=== PATIENT | female | born 1950 | race Caucasian/White ===

== ENCOUNTER 2018-01-09 00:21 | Inpatient (IN) | payer MEDICARE ==
[~2018-01-09] VITALS: Ht 175.3 cm; Wt 80.2 kg
[2018-01-09] VITALS (19 sets, daily range): BP systolic 127–205; BP diastolic 57–84; PULSE 83–102; RESP 15–23; TEMP 98.4–98.6; O2SAT 92–96
[2018-01-09] MEDS ORDERED: MORPHINE SULFATE 4 MG/ML INJ ONE (00:50)
--- NOTE | 2018-01-09 01:06 | PD ---
HPI Chief Complaint: Altered Mental Status Time Seen by Provider: 00:33 Travel History International Travel<30 days: No Contact w/Intl Traveler<30days: No Traveled to known affect area: No History of Present Illness HPI The patient is a 68-year-old female who presents to the emergency department via private vehicle for altered mental status. The patient flew down from [place] with her daughter earlier tonight into [facility]. The patient was noted to have an alteration in her mental status while on the plane by the daughter. The daughter states the patient was digging through her purse, would not talk to the daughter, and appear to have an altered mental status, which is not the patient's normal baseline. The patient does have a history of previous intracranial hemorrhage, spontaneous per the daughter's report, but still takes a baby aspirin daily. The patient did complain of a headache earlier today and also noted some nausea and vomiting by the daughter prior to arrival. The patient denies any neck pain, chest pain, shortness of breath, abdominal pain, or focal deficits upon arrival. Symptoms are moderate. The patient does have a history of partial seizure in the past and was previously on Keppra and Dilantin, however, only takes Lamictal currently. PFSH Past Medical History COPD: Yes Cerebrovascular Accident: Yes (frontal lobe bleed) Diabetes: Yes Patient Takes Glucophage: No Glaucoma: Yes Hypertension: Yes Seizures: Yes ?: Not : 3 Para: 3 Past Surgical History Narrative Surgical Glaucoma surgery, lumpectomy Social History Alcohol Use: No Tobacco Use: No Substance Use: No Allergies-Medications (Allergen,Severity, Reaction): Coded Allergies: brimonidine (Verified Allergy, Unknown, 01/09/18) Reported Meds & Prescriptions Reported Meds & Active Scripts Active Reported Omeprazole 20 Mg Tab 20 Mg PO DAILY Azopt Opth Drops (Brinzolamide) 1% Susp 1 Drop EACH EYE TID Isopto Carpine Opth Drops (Pilocarpine HCl) 1 % Soln 1 Drop EACH EYE Q6HR Magnesium Oxide 250 Mg Tab 250 Mg PO DAILY Lamictal (Lamotrigine) 200 Mg Tab 200 Mg PO BID Glipizide 5 Mg Tab 5 Mg PO DAILY Take 30 minutes before a meal Review of Systems Except as stated in HPI: all other systems reviewed are Neg General / Constitutional: No: Fever HENT: Positive: Headaches, Lightheadedness Cardiovascular: No: Chest Pain or Discomfort Respiratory: No: Shortness of Breath Gastrointestinal: Positive: Nausea, Vomiting, No: Abdominal Pain Musculoskeletal: No: Weakness Neurologic: Positive: Dizziness, Change in Mentation, No: Focal Abnormalities, Paresthesia, Sensory Disturbance Psychiatric: No: Substance Abuse Physical Exam Narrative GENERAL: Awake, alert, nontoxic-appearing 5-year-old female who appears her stated age and is in no acute respiratory distress. SKIN: Focused skin assessment warm/dry. HEAD: Atraumatic. Normocephalic. EYES: Pupils are 2 mm bilateral. EOMs are intact. ENT: No nasal bleeding or discharge. Upper dentures noted. NECK: Trachea midline. No JVD. CARDIOVASCULAR: Regular rate and rhythm. No murmur appreciated. RESPIRATORY: No accessory muscle use. Clear to auscultation. Breath sounds equal bilaterally. GASTROINTESTINAL: Abdomen soft, non-tender, nondistended. No rebound tenderness. MUSCULOSKELETAL: No obvious deformities. No clubbing. No cyanosis. No edema. Back: No tenderness of the CVA. Tattoo noted over the right scapula. NEUROLOGICAL: Awake and alert. No obvious cranial nerve deficits. Motor grossly within normal limits. Normal speech. No drift of the upper or lower extremities. Sensation is symmetric on the face, arms, and legs. Patient is oriented to person, daughter, month, president [facility], however, did not know the current year or location. PSYCHIATRIC: Slightly altered mental status. Data Data Last Documented VS Vital Signs Date Time Temp Pulse Resp B/P (MAP) Pulse Ox O2 Delivery O2 Flow Rate FiO2 01/09/18 02:13 92 16 174/79 (110) 94 Room Air 01/09/18 00:34 98.6 Orders Orders Morphine Inj (Morphine Inj) (01/09/18 00:50) Electrocardiogram (01/09/18 01:01) Ammonia (01/09/18 01:01) Complete Blood Count With Diff (01/09/18 01:01) Comprehensive Metabolic Panel (01/09/18 01:01) Creatine Kinase (Cpk) (01/09/18 01:01) Prothrombin Time / Inr (Pt) (01/09/18 01:01) Act Partial Throm Time (Ptt) (01/09/18 01:01) Troponin I (01/09/18 01:01) Thyroid Stimulating Hormone (01/09/18 01:01) Urinalysis - C+S If Indicated (01/09/18 01:01) Chest, Single Ap (01/09/18 01:01) Ct Brain W/O Iv Contrast(Rout) (01/09/18 01:01) Blood Glucose (01/09/18 01:01) Ecg Monitoring (01/09/18 01:01) Iv Access Insert/Monitor (01/09/18 01:01) Oximetry (01/09/18 01:01) Sodium Chloride 0.9% Flush (Ns Flush) (01/09/18 01:15) Drug Screen, Random Urine (01/09/18 01:01) Alcohol (Ethanol) (01/09/18 01:01) Lactic Acid (01/09/18 01:01) Nicardipine Inj (Cardene Inj) (01/09/18 02:00) Labs Laboratory Tests Test 01/09/18 01:05 01/09/18 01:29 White Blood Count 13.1 TH/MM3 Red Blood Count 4.30 MIL/MM3 Hemoglobin 12.7 GM/DL Hematocrit 38.2 % Mean Corpuscular Volume 88.9 FL Mean Corpuscular Hemoglobin 29.6 PG Mean Corpuscular Hemoglobin Concent 33.4 % Red Cell Distribution Width 14.6 % Platelet Count 399 TH/MM3 Mean Platelet Volume 9.3 FL Neutrophils (%) (Auto) 84.8 % Lymphocytes (%) (Auto) 11.3 % Monocytes (%) (Auto) 2.3 % Eosinophils (%) (Auto) 0.8 % Basophils (%) (Auto) 0.8 % Neutrophils # (Auto) 11.1 TH/MM3 Lymphocytes # (Auto) 1.5 TH/MM3 Monocytes # (Auto) 0.3 TH/MM3 Eosinophils # (Auto) 0.1 TH/MM3 Basophils # (Auto) 0.1 TH/MM3 CBC Comment DIFF FINAL Differential Comment Prothrombin Time 9.7 SEC Prothromb Time International Ratio 1.0 RATIO Activated Partial Thromboplast Time 29.6 SEC Blood Urea Nitrogen 26 MG/DL Creatinine 1.15 MG/DL Random Glucose 119 MG/DL Total Protein 8.2 GM/DL Albumin 4.4 GM/DL Calcium Level 9.5 MG/DL Alkaline Phosphatase 76 U/L Aspartate Amino Transf (AST/SGOT) 22 U/L Alanine Aminotransferase (ALT/SGPT) 26 U/L Total Bilirubin 0.4 MG/DL Sodium Level 139 MEQ/L Potassium Level 4.7 MEQ/L Chloride Level 103 MEQ/L Carbon Dioxide Level 26.9 MEQ/L Anion Gap 9 MEQ/L Estimat Glomerular Filtration Rate 47 ML/MIN Total Creatine Kinase 132 U/L Troponin I LESS THAN 0.02 NG/ML Thyroid Stimulating Hormone 3rd Gen 3.010 uIU/ML Ethyl Alcohol Level LESS THAN 3 MG/DL Lactic Acid Level 0.7 mmol/L Ammonia 11 MCMOL/L [facility] Medical Decision Making Medical Screen Exam Complete: Yes Emergency Medical Condition: Yes Medical Record Reviewed: Yes Interpretation(s) EKG reveals normal sinus rhythm with a rate of 89. No ischemic changes or ectopy noted. Last Impressions Head CT 01/09/18100 Signed Impressions: Service Date/Time: December 01:16 - CONCLUSION: 1. Left frontal intraparenchymal hemorrhage measuring 3.1 x 2.1 cm with minimal subarachnoid hemorrhage. 2. 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 Kuldip Oh MD Chest X-Ray 01/09/18100 Signed Impressions: Service Date/Time: December 01:09 - CONCLUSION: No acute disease. Kuldip Oh MD Laboratory Tests Test 01/09/18 01:05 01/09/18 01:29 White Blood Count 13.1 TH/MM3 Red Blood Count 4.30 MIL/MM3 Hemoglobin 12.7 GM/DL Hematocrit 38.2 % Mean Corpuscular Volume 88.9 FL Mean Corpuscular Hemoglobin 29.6 PG Mean Corpuscular Hemoglobin Concent 33.4 % Red Cell Distribution Width 14.6 % Platelet Count 399 TH/MM3 Mean Platelet Volume 9.3 FL Neutrophils (%) (Auto) 84.8 % Lymphocytes (%) (Auto) 11.3 % Monocytes (%) (Auto) 2.3 % Eosinophils (%) (Auto) 0.8 % Basophils (%) (Auto) 0.8 % Neutrophils # (Auto) 11.1 TH/MM3 Lymphocytes # (Auto) 1.5 TH/MM3 Monocytes # (Auto) 0.3 TH/MM3 Eosinophils # (Auto) 0.1 TH/MM3 Basophils # (Auto) 0.1 TH/MM3 CBC Comment DIFF FINAL Differential Comment Prothrombin Time 9.7 SEC Prothromb Time International Ratio 1.0 RATIO Activated Partial Thromboplast Time 29.6 SEC Blood Urea Nitrogen 26 MG/DL Creatinine 1.15 MG/DL Random Glucose 119 MG/DL Total Protein 8.2 GM/DL Albumin 4.4 GM/DL Calcium Level 9.5 MG/DL Alkaline Phosphatase 76 U/L Aspartate Amino Transf (AST/SGOT) 22 U/L Alanine Aminotransferase (ALT/SGPT) 26 U/L Total Bilirubin 0.4 MG/DL Sodium Level 139 MEQ/L Potassium Level 4.7 MEQ/L Chloride Level 103 MEQ/L Carbon Dioxide Level 26.9 MEQ/L Anion Gap 9 MEQ/L Estimat Glomerular Filtration Rate 47 ML/MIN Total Creatine Kinase 132 U/L Troponin I LESS THAN 0.02 NG/ML Thyroid Stimulating Hormone 3rd Gen 3.010 uIU/ML Ethyl Alcohol Level LESS THAN 3 MG/DL Lactic Acid Level 0.7 mmol/L Ammonia 11 MCMOL/L Differential Diagnosis Differential diagnosis includes delirium, UTI, intracranial hemorrhage, subdural hemorrhage, hyponatremia, CVA, seizure, dehydration, electrolyte abnormality, pneumonia. Narrative Course IV was established, labs are drawn and sent, and the patient was placed on cardiac telemetry monitoring and continuous pulse oximetry monitoring. EKG was ordered and interpreted. CT of the brain was obtained. UA was sent to lab. CT the brain is positive for 3.1 x 3.2 cm intraparenchymal hemorrhage. The patient was noted to be hypertensive with a systolic of 205 and diastolic in 95 , therefore, the patient had a bed was placed up at 30 and the patient was placed on a Cardene drip. A call was placed to the on-call elevator examiner and adjuster, Dr. Gallegos as well as the on-call neurosurgeon, Dr. Garcia. I discussed the patient with Dr. Blanton at 2 AM, no indication for TXA as it may increase her risk of CVA. The patient's platelets and coags are unremarkable. The patient will be admitted to the intensive surgical care unit. Critical Care Narrative Aggregate critical care time was 45 minutes. Time to perform other separately billable procedures was not included in the critical care time. My time did not include minutes spent treating any other patients simultaneously or on activities that did not directly contribute to the patient's treatment. The services I provided to this patient were to treat and/or prevent clinically significant deterioration that could result in: Herniation, increased intracranial hemorrhage, . I provided critical care services requiring my management, as noted below: Chart data review, documentation time, medication orders and management, vital sign assessments/reviewing monitor data, ordering and reviewing lab tests, ordering and interpreting/reviewing x-rays and diagnostic studies, care of the patient and discussion of the patient with the admitting physicians. Physician Communication Physician Communication The on-call elevator examiner and adjuster and on-call neurosurgeon were paged for admission. Diagnosis Primary Impression: Intraparenchymal hemorrhage of brain Admitting Information Admitting Physician Requests: Admit Condition: Serious Alberto Ochoa MD Jan 09, 2018 01:06
[2018-01-09] MEDS ORDERED: SODIUM CHLORIDE 0.9% FLUSH 10 ML FLUSH IV FLUSH PRN (01:15)
[2018-01-09] MEDS ORDERED: LAMI200T PO (01:17)
[2018-01-09] MEDS ORDERED: AZOP1SUS EACH EYE (01:17)
[2018-01-09] MEDS ORDERED: ASPI81CH6 CHEW (01:17)
[2018-01-09] MEDS ORDERED: GLIP5TAB8 PO (01:17)
[2018-01-09] MEDS ORDERED: ISOP1SOL EACH EYE (01:17)
[2018-01-09] MEDS ORDERED: MAGN250T11 PO (01:17)
--- NOTE | 2018-01-09 01:34 | RADRPT ---
EXAM DATE/TIME: 01/09/2018 01:09 [facility] COMPARISON: No previous studies available for comparison. INDICATIONS : Chest discomfort, vomiting starting today MEDICAL HISTORY : None. SURGICAL HISTORY : None. ENCOUNTER: Initial ACUITY: 1 day PAIN SCORE: 0/10 LOCATION: Bilateral chest FINDINGS: A single view of the chest demonstrates the lungs to be symmetrically aerated without evidence of mas s, infiltrate or effusion. The cardiomediastinal contours are unremarkable. Osseous structures are intact. CONCLUSION: No acute disease. Kuldip Oh MD on January 09, 2018 at 1:33 Board Certified Radiologist. This report was verified electronically.
--- NOTE | 2018-01-09 01:39 | RADRPT ---
EXAM DATE/TIME: 01/09/2018 01:16 [facility] COMPARISON: No previous studies available for comparison. INDICATIONS : Altered mental status. RADIATION DOSE: 56.35 CTDIvol (mGy) MEDICAL HISTORY : Seizures. SURGICAL HISTORY : Non-responsive. ENCOUNTER: Initial ACUITY: 1 day PAIN SCALE: Non-responsive LOCATION: cranial TECHNIQUE: Multiple contiguous axial images were obtained of the head. Using automated exposure control and adj ustment of the mA and/or kV according to patient size, radiation dose was kept as low as reasonably a chievable to obtain optimal diagnostic quality images. DICOM format image data is available electro nically for review and comparison. FINDINGS: CEREBRUM: Left frontal hemorrhage measures 3.1 x 2.1 cm. Minimal subarachnoid hemorrhage. Encephalomalacia in t he right frontal lobe. There appears to be minimal hemorrhage in the left lateral ventricle No eviden ce of midline shift, mass lesion, or acute infarction. No extra-axial fluid collections are seen. POSTERIOR FOSSA: The cerebellum and brainstem are intact. The 4th ventricle is midline. The cerebellopontine angle i s unremarkable. EXTRACRANIAL: The visualized portion of the orbits is intact. SKULL: The calvaria is intact. No evidence of skull fracture. CONCLUSION: 1. Left frontal intraparenchymal hemorrhage measuring 3.1 x 2.1 cm with minimal subarachnoid hemorrha ge. 2. 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 Kuldip Oh MD on January 09, 2018 at 1:35 Board Certified Radiologist. This report was verified electronically.
[2018-01-09 01:48] LABS: AUTOMATED NEUTROPHIL # 11.1 TH/MM3 (1.8-7.7); BASOPHIL # 0.1 TH/MM3 (0-0.2); BASOPHIL % 0.8 % (0.0-2.0); EOSINOPHIL # 0.1 TH/MM3 (0-0.4); EOSINOPHIL % 0.8 % (0.0-4.0); HEMATOCRIT 38.2 % (35.0-46.0); HEMOGLOBIN 12.7 GM/DL (11.6-15.3); LYMPH % 11.3 % (9.0-44.0); LYMPHOCYTE # 1.5 TH/MM3 (1.0-4.8); MEAN CELL VOLUME 88.9 FL (80.0-100.0); MEAN CORPUSCULAR HEMOGLOBIN 29.6 PG (27.0-34.0); MEAN CORPUSCULAR HGB CONC 33.4 % (32.0-36.0); MEAN PLATELET VOLUME 9.3 FL (7.0-11.0); MONO % 2.3 % (0.0-8.0); MONOCYTE # 0.3 TH/MM3 (0-0.9); NEUT % 84.8 % (16.0-70.0); PLATELET COUNT 399 TH/MM3 (150-450); RED CELL DISTRIBUTION WIDTH 14.6 % (11.6-17.2); WHITE BLOOD COUNT 13.1 TH/MM3 (4.0-11.0)
[2018-01-09 02:00] LABS: PROTHROMBIN TIME - PATIENT 9.7 SEC (9.8-11.6)
[2018-01-09] MEDS: niCARdipine INJ 25 MG in SODIUM CHLOR 0.9% 250 ML INJ 240 ML IV PRN ×6 (02:02→20:13)
[2018-01-09 02:06] LABS: ALBUMIN 4.4 GM/DL (3.4-5.0); ALT (GPT) 26 U/L (10-53); AST (GOT) 22 U/L (15-37); BICARBONATE 26.9 MEQ/L (21.0-32.0); BLOOD UREA NITROGEN 26 MG/DL (7-18); CALCIUM 9.5 MG/DL (8.5-10.1); CHLORIDE 103 MEQ/L (98-107); CREATININE 1.15 MG/DL (0.50-1.00); GLOMERULAR FILTRATION RATE 47 ML/MIN (>89); GLUCOSE,RANDOM 119 MG/DL (74-106); SODIUM (NA) 139 MEQ/L (136-145)
[2018-01-09 02:16] LABS: ALKALINE PHOSPHATASE 76 U/L (45-117); TOTAL BILIRUBIN ADULT 0.4 MG/DL (0.2-1.0); TOTAL PROTEIN 8.2 GM/DL (6.4-8.2); TROPONIN I LESS THAN 0.02 NG/ML (0.02-0.05)
[2018-01-09] MEDS ORDERED: OMEP20TA93 PO (02:18)
[2018-01-09] MEDS: SODIUM CHLOR 0.9% 1000 ML INJ 1,000 ML IV SCH ×2 (02:29→14:24)
[2018-01-09] MEDS ORDERED: SENNOSIDES 8.6 MG TAB PO PRN (02:30)
[2018-01-09] MEDS ORDERED: MORPHINE SULFATE 2 MG/ML SYRINGE IV PUSH PRN (02:30)
[2018-01-09] MEDS ORDERED: MAGNESIUM HYDROXIDE SUSP 30 ML CUP PO PRN (02:30)
[2018-01-09] MEDS ORDERED: BISACODYL 10 MG SUPP RECTAL PRN (02:30)
[2018-01-09] MEDS ORDERED: CHLORHEXIDINE GLUCONATE 2 % 1 PACK (2 CLOTHS) TOP PRN (02:30)
[2018-01-09] MEDS ORDERED: ONDANSETRON HCL 4 MG/2 ML VIAL IV PUSH PRN (02:30)
[2018-01-09] MEDS ORDERED: ACETAMINOPHEN 325 MG TAB PO PRN (02:30)
[2018-01-09] MEDS ORDERED: NURSING INFORMATION XX SCH (02:30)
[2018-01-09] MEDS ORDERED: LACTULOSE SYRUP 20 GM/30 ML CUP PO PRN (02:30)
[2018-01-09] MEDS ORDERED: RESP: ALBUTEROL 2.5 MG/IPRATROPIUM 0.5 MG NEB (PRN) INH (02:30)
--- NOTE | 2018-01-09 02:33 | HHI.HP ---
HPI Service Critical Care Medicine Primary Care Physician Non-Staff Admission Diagnosis Intraparenchymal hemorrhage Diagnosis: Travel History International Travel<30 Days: No Contact w/Intl Traveler <30 Da: No Traveled to Known Affected Are: No History of Present Illness 68-year-old female who presents for an evaluation of altered mental status. The patient flew down from [place] with her daughter earlier tonight into [facility]. The patient was noted to have an alteration in her mental status while on the plane by the daughter. The daughter states the patient was digging through her purse, would not talk to the daughter, and appear to be altered, which is not the patient's normal baseline. The patient does have a history of previous frontal lobe intracranial hemorrhage, spontaneous per the daughter's report, but still takes a baby aspirin daily. The patient did complain of a headache earlier today and also noted some nausea and vomiting by the daughter prior to arrival. She however denies any neck pain, chest pain, shortness of breath, abdominal pain, or focal deficits upon arrival. The patient does have a history of partial seizure in the past and was previously on Keppra and Dilantin, however, only takes Lamictal currently. The CT of the head obtained in the emergency department shows left frontal intraparenchymal hemorrhage measuring 3.12.1 cm with a minimal subarachnoid bleed. The case was discussed by ED attending with the neurosurgeon on-call who recommends admission to neuro ICU and conservative management with tight blood pressure control. Review of Systems Constitutional: DENIES: Diaphoretic episodes, Fatigue, Fever, Weight gain, Weight loss, Chills, Dizziness, Change in appetite, Night Sweats Endocrine: DENIES: Abnorml menstrual pattern, Heat/cold intolerance, Polydipsia , Polyuria, Polyphagia Eyes: DENIES: Diplopia, Eye inflammation, Eye pain, Vision loss, Photosensitivity, Double Vision Ears, nose, mouth, throat: DENIES: Tinnitus, Hearing loss, Vertigo, Nasal discharge, Oral lesions, Throat pain, Hoarseness, Ear Pain, Running Nose, Epistaxis, Sinus Pain, Toothache, Odynophagia Respiratory: DENIES: Apneas, Cough, Snoring, Wheezing, Hemoptysis, Sputum production, Shortness of breath Cardiovascular: DENIES: Chest pain, Palpitations, Syncope, Dyspnea on Exertion , PND, Lower Extremity Edema, Orthopnea, Claudication Gastrointestinal: COMPLAINS OF: Nausea, Vomiting, DENIES: Abdominal pain, Black stools, Bloody stools, Constipation, Diarrhea, Difficulty Swallowing, Anorexia Genitourinary: DENIES: Abnormal vaginal bleeding, Dysmenorrhea, Dyspareunia, Sexual dysfunction, Urinary frequency, Urinary incontinence, Urgency, Hematuria , Dysuria, Nocturia, Vaginal discharge Musculoskeletal: DENIES: Joint pain, Muscle aches, Stiffness, Joint Swelling, Back pain, Neck pain Integumentary: DENIES: Abnormal pigmentation, Pruritus, Rash, Nail changes, Breast masses, Breast skin changes, Nipple discharge Hematologic/lymphatic: DENIES: Bruising, Lymphadenopathy Immunologic/allergic: DENIES: Eczema, Urticaria Neurologic: COMPLAINS OF: Headache, Speech Problems, Poor Balance, DENIES: Abnormal gait, Localized weakness, Paresthesias, Seizures, Tremor Psychiatric: DENIES: Anxiety, Confusion, Mood changes, Depression, Hallucinations, Agitation, Suicidal Ideation, Homicidal Ideation, Delusions Past Family Social History Allergies: Coded Allergies: brimonidine (Verified Allergy, Unknown, 01/09/18) Past Medical History COPD: Yes Cerebrovascular Accident: Yes (frontal lobe bleed) Diabetes: Yes Glaucoma: Yes Hypertension: Yes Seizures: Yes Past Surgical History Glaucoma surgery, lumpectomy Reported Medications Reported Meds & Active Scripts Active Reported Omeprazole 20 Mg Tab 20 Mg PO DAILY Azopt Opth Drops (Brinzolamide) 1% Susp 1 Drop EACH EYE TID Isopto Carpine Opth Drops (Pilocarpine HCl) 1 % Soln 1 Drop EACH EYE Q6HR Magnesium Oxide 250 Mg Tab 250 Mg PO DAILY Lamictal (Lamotrigine) 200 Mg Tab 200 Mg PO BID Glipizide 5 Mg Tab 5 Mg PO DAILY Take 30 minutes before a meal Active Ordered Medications Current Medications Medications (Trade) Dose Ordered Sig/Jannie Route PRN Reason Start Time Stop Time Status Last Admin Dose Admin Nicardipine HCl 25 mg/Sodium Chloride 250 ml @ 50 mls/hr TITRATE PRN IV Blood pressure management 01/09/18 02:00 01/09/18 02:02 Lamotrigine (LaMICtal) 200 mg BID PO 01/09/18 09:00 Pilocarpine HCl (Isopto Carpine 1% Opth Soln) 1 drop Q6HR EACH EYE 01/09/18 06:00 Patient Own Medication PT OWN MED: AZOPT EYE DRPaola.. TID EACH EYE 01/09/18 09:00 Magnesium Oxide (Mag-Ox) 400 mg DAILY PO 01/09/18 09:00 Sodium Chloride 1,000 ml @ 84 mls/hr [id number] IV 01/09/18 02:29 Sodium Chloride (NS Flush) 2 ml UNSCH PRN IV FLUSH FLUSH AFTER USING IV ACCESS 01/09/18 02:30 Sodium Chloride (NS Flush) 2 ml BID IV FLUSH 01/09/18 09:00 Acetaminophen (Tylenol) 650 mg Q6H PRN PO PAIN 1-5 AND/OR FEVER >101F 01/09/18 02:30 Morphine Sulfate (Morphine Inj) 2 mg Q2H PRN IV PUSH PAIN SCALE 6 TO 10 01/09/18 02:30 Famotidine (Pepcid Inj) 20 mg Q12HR IV PUSH 01/09/18 09:00 Ondansetron HCl (Zofran Inj) 4 mg Q6H PRN IV PUSH NAUSEA OR VOMITING 01/09/18 02:30 Albuterol/ Ipratropium (Duoneb Neb) 1 ampule Q2HR NEB PRN INH WHEEZING 01/09/18 02:30 Miscellaneous Information 1 Q361D XX 01/09/18 02:30 Chlorhexidine Gluconate (Chlorhexidine 2% Cloth) 3 pack Taper DAILY@04 TOP 01/09/18 04:00 01/05/19 03:59 Chlorhexidine Gluconate (Chlorhexidine 2% Cloth) 3 pack UNSCH PRN TOP HYGIENIC CARE 01/09/18 02:30 Senna/Docusate Sodium (Tanya-Colace) 1 tab BID PO 01/09/18 09:00 Magnesium Hydroxide (Milk Of Magnesia Liq) 30 ml Q12H PRN PO Mild constipation 01/09/18 02:30 Sennosides (Senokot) 17.2 mg Q12H PRN PO Moderate constipation 01/09/18 02:30 Bisacodyl (Dulcolax Supp) 10 mg DAILY PRN RECTAL SEVERE CONSITIPATION/ IF NPO 01/09/18 02:30 Lactulose (Lactulose Liq) 30 ml DAILY PRN PO SEVERE CONSITIPATION/ IF PO 01/09/18 02:30 Family History No family history significant of early coronary artery disease or malignancy Social History Alcohol Use: No Tobacco Use: No Substance Use: No Physical Exam Vital Signs Vital Signs Date Time Temp Pulse Resp B/P (MAP) Pulse Ox O2 Delivery O2 Flow Rate FiO2 01/09/18 02:31 96 16 161/73 (102) 96 Room Air 01/09/18 02:13 92 16 174/79 (110) 94 Room Air 01/09/18 02:02 87 182/77 01/09/18 01:13 93 Room Air 01/09/18 00:42 88 16 205/84 (124) 96 Room Air 01/09/18 00:34 98.6 88 16 205/84 (124) 92 Physical Exam GENERAL: Well-nourished, well-developed patient. SKIN: Warm and dry. HEAD: Normocephalic. EYES: No scleral icterus. No injection or drainage. NECK: Supple, trachea midline. No JVD or lymphadenopathy. CARDIOVASCULAR: Regular rate and rhythm without murmurs, gallops, or rubs. RESPIRATORY: Breath sounds equal bilaterally. No accessory muscle use. GASTROINTESTINAL: Abdomen soft, non-tender, nondistended. MUSCULOSKELETAL: No cyanosis, or edema. BACK: Nontender without obvious deformity. NEURO EXAM: GCS: 15 Mental Status: The patient is alert and oriented to person, place, and time with normal speech. Cranial Nerves: Visual acuity intact bilaterally. Visual enamorado normal in all quadrants. Pupils are round, reactive to light. Extraocular movements are intact without ptosis. Hearing is normal bilaterally. Voice is normal. Tongue protrudes midline and moves symmetrically. Laboratory Laboratory Tests Test 01/09/18 01:05 01/09/18 01:29 White Blood Count 13.1 Red Blood Count 4.30 Hemoglobin 12.7 Hematocrit 38.2 Mean Corpuscular Volume 88.9 Mean Corpuscular Hemoglobin 29.6 Mean Corpuscular Hemoglobin Concent 33.4 Red Cell Distribution Width 14.6 Platelet Count 399 Mean Platelet Volume 9.3 Neutrophils (%) (Auto) 84.8 Lymphocytes (%) (Auto) 11.3 Monocytes (%) (Auto) 2.3 Eosinophils (%) (Auto) 0.8 Basophils (%) (Auto) 0.8 Neutrophils # (Auto) 11.1 Lymphocytes # (Auto) 1.5 Monocytes # (Auto) 0.3 Eosinophils # (Auto) 0.1 Basophils # (Auto) 0.1 CBC Comment DIFF FINAL Differential Comment Prothrombin Time 9.7 Prothromb Time International Ratio 1.0 Activated Partial Thromboplast Time 29.6 Blood Urea Nitrogen 26 Creatinine 1.15 Random Glucose 119 Total Protein 8.2 Albumin 4.4 Calcium Level 9.5 Alkaline Phosphatase 76 Aspartate Amino Transf (AST/SGOT) 22 Alanine Aminotransferase (ALT/SGPT) 26 Total Bilirubin 0.4 Sodium Level 139 Potassium Level 4.7 Chloride Level 103 Carbon Dioxide Level 26.9 Anion Gap 9 Estimat Glomerular Filtration Rate 47 Total Creatine Kinase 132 Troponin I LESS THAN 0.02 Thyroid Stimulating Hormone 3rd Gen 3.010 Ethyl Alcohol Level LESS THAN 3 Lactic Acid Level 0.7 Ammonia 11 Result Diagram: 01/09/1810401/09/18104 Imaging Last [address] 01/09/18100 Signed Impressions: Service Date/Time: December 01:16 - CONCLUSION: 1. Left frontal intraparenchymal hemorrhage measuring 3.1 x 2.1 cm with minimal subarachnoid hemorrhage. 2. 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 Kuldip Oh MD Chest X-Ray 01/09/18100 Signed Impressions: Service Date/Time: December 01:09 - CONCLUSION: No acute disease. MD Ann-Marie Ruano VTE Risk Assessment Ann-Marie VTE Risk Assessment: Mod/High Risk (score >= 2) VTE Pharm Contraindication: Hemorrhage Caprini Risk Assessment Model Point Value = 1 Point Value = 2 Point Value = 3 Point Value = 5 Age 41-60 Minor surgery BMI > 25 kg/m2 Swollen legs Varicose veins or History of unexplained or recurrent spontaneous Oral contraceptives or hormone replacement Sepsis (< 1 month) Serious lung disease, including pneumonia (< 1 month) Abnormal pulmonary function Acute myocardial infarction Congestive heart failure (< 1 month) History of inflammatory bowel disease Medical patient at bed rest Age 61-74 Arthroscopic surgery Major open surgery (> 45 min) Laparoscopic surgery (> 45 min) Malignancy Confined to bed (> 72 hours) Immobilizing plaster cast Central venous access Age >= 75 History of VTE Family history of VTE Factor V Leiden Prothrombin [id number] Lupus anticoagulant Anticardiolipin antibodies Elevated serum homocysteine Heparin-induced thrombocytopenia Other congenital or acquired thrombophilia Stroke (< 1 month) Elective arthroplasty Hip, pelvis, or leg fracture Acute spinal cord injury (< 1 month) Prophylaxis Regimen Total Risk Factor Score Risk Level Prophylaxis Regimen 0-1 Low Early ambulation 2 Moderate Order ONE of the following: *Sequential Compression Device (SCD) *Heparin 5000 units SQ BID 3-4 Higher Order ONE of the following medications: *Heparin 5000 units SQ TID *Enoxaparin/Lovenox 40 mg SQ daily (WT < 150 kg, CrCl > 30 mL/min) *Enoxaparin/Lovenox 30 mg SQ daily (WT < 150 kg, CrCl > 10-29 mL/min) *Enoxaparin/Lovenox 30 mg SQ BID (WT < 150 kg, CrCl > 30 mL/min) AND/OR *Sequential Compression Device (SCD) 5 or more Highest Order ONE of the following medications: *Heparin 5000 units SQ TID (Preferred with Epidurals) *Enoxaparin/Lovenox 40 mg SQ daily (WT < 150 kg, CrCl > 30 mL/min) *Enoxaparin/Lovenox 30 mg SQ daily (WT < 150 kg, CrCl > 10-29 mL/min) *Enoxaparin/Lovenox 30 mg SQ BID (WT < 150 kg, CrCl > 30 mL/min) AND *Sequential Compression Device (SCD) Assessment and Plan Assessment and Plan Intracranial bleed -No surgical intervention indicated -Coags within normal limits -Blood pressure control -SBP goal less than 140 -Repeat CT head in 24 hours -Neuro checks per unit protocol Seizure disorder -Lamictal Diabetes mellitus -Insulin sliding scale Hypertension -Nicardipine drip -Labetalol and hydralazine as needed to keep SBP less than 140 DVT GI prophylaxis -[employer] and SCDs -No pharmacological DVT prophylaxis due to acute ICH -Pepcid Critical Care: The total critical care time was 35 minutes. Time to perform other separately billable procedures was not included in the critical care time. Zach Gallegos MD Jan 09, 2018 2:33 am
[2018-01-09] MEDS ORDERED: hydrALAZINE HCL 20 MG/ML VIAL IV PUSH PRN (03:30)
[2018-01-09] MEDS ORDERED: LABETALOL HCL 100 MG/20 ML VIAL IV PUSH PRN ×2 (03:30→11:00)
[2018-01-09] MEDS: CHLORHEXIDINE GLUCONATE 2 % 1 PACK (2 CLOTHS) TOP SCH (04:19)
[2018-01-09] MEDS: PILOCARPINE HCL 1% OPHT SOLN 15 ML BTL EACH EYE SCH ×3 (06:41→18:00)
[2018-01-09] MEDS ORDERED: ALPRAZolam 0.25 MG TAB PO PRN (09:00)
[2018-01-09] MEDS ORDERED: AZOPT EYE EACH EYE SCH (09:00)
--- NOTE | 2018-01-09 09:19 | PD.CONS ---
History of Present Illness Service Neurosurgery Consult Requested By Private Detective Reason for Consult Left frontal lobe hemorrhage Primary Care Physician Non-Staff Diagnoses: History of Present Illness 68-year-old female with an acute onset of confusion and difficulty with his speech started last evening on the flight from [place] to [place]. Patient 's daughter was accompanying her and is a nurse and they are here on vacation visiting her cousin. Subsequently on the drive to her relatives she also had positive vomiting and complained of a headache. She is brought to [facility] emergency room and CT scan of the head reveals a left frontal lobe approximately 3 cm intraparenchymal hemorrhage with small amount of extension into the interhemispheric fissure. There is also right frontal encephalomalacia from a previous hemorrhage several years ago and the daughter relates she also had another small hemorrhage a year ago and was diagnosed with amyloid angiopathy seen by neurology and neurosurgery and no underlying vascular abnormality was found. She also has a history of seizures staring episodes and speech arrest which are transient but has not had a seizure in over a year and has been on Lamictal. She was hypertensive on presentation with systolic blood pressure of 205 and placed on Cardene drip. She denies any headache this morning or any nausea although still is confused with some difficulty with expression of her speech. Review of Systems ROS Limitations: Altered Mental Status Constitutional: COMPLAINS OF: Dizziness, DENIES: Diaphoretic episodes, Fatigue , Fever, Weight gain, Weight loss, Chills, Change in appetite, Night Sweats Endocrine: DENIES: Abnorml menstrual pattern, Heat/cold intolerance, Polydipsia , Polyuria, Polyphagia Eyes: DENIES: Blurred vision, Diplopia, Eye inflammation, Eye pain, Vision loss , Photosensitivity, Double Vision Ears, nose, mouth, throat: DENIES: Tinnitus, Hearing loss, Vertigo, Nasal discharge, Oral lesions, Throat pain, Hoarseness, Ear Pain, Running Nose, Epistaxis, Sinus Pain, Toothache, Odynophagia Respiratory: COMPLAINS OF: Shortness of breath, DENIES: Apneas, Cough, Snoring , Wheezing, Hemoptysis, Sputum production Cardiovascular: COMPLAINS OF: Dyspnea on Exertion, DENIES: Chest pain, Palpitations, Syncope, PND, Lower Extremity Edema, Orthopnea, Claudication Gastrointestinal: DENIES: Abdominal pain, Black stools, Bloody stools, Constipation, Diarrhea, Nausea, Vomiting, Difficulty Swallowing, Anorexia Genitourinary: DENIES: Abnormal vaginal bleeding, Dysmenorrhea, Dyspareunia, Sexual dysfunction, Urinary frequency, Urinary incontinence, Urgency, Hematuria , Dysuria, Nocturia, Vaginal discharge Musculoskeletal: DENIES: Joint pain, Muscle aches, Stiffness, Joint Swelling, Back pain, Neck pain Integumentary: DENIES: Abnormal pigmentation, Pruritus, Rash, Nail changes, Breast masses, Breast skin changes, Nipple discharge Hematologic/lymphatic: DENIES: Bruising, Lymphadenopathy Immunologic/allergic: DENIES: Eczema, Urticaria Neurologic: COMPLAINS OF: Abnormal gait, Headache, Seizures, Speech Problems, Tremor, Poor Balance, DENIES: Localized weakness, Paresthesias Psychiatric: COMPLAINS OF: Anxiety, Confusion, DENIES: Mood changes, Depression , Hallucinations, Agitation, Suicidal Ideation, Homicidal Ideation, Delusions Except as stated in HPI: all other systems reviewed are Neg Past Family Social History Allergies: Coded Allergies: brimonidine (Verified Allergy, Unknown, 01/09/18) Past Medical History 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; 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; COPD from smoking; diabetes mellitus; hypertension; glaucoma and she is blind in the right eye Reported Medications Omeprazole 20 Mg Tab 20 Mg PO DAILY Azopt Opth Drops (Brinzolamide) 1% Susp 1 Drop EACH EYE TID Isopto Carpine Opth Drops (Pilocarpine HCl) 1 % Soln 1 Drop EACH EYE Q6HR Magnesium Oxide 250 Mg Tab 250 Mg PO DAILY Lamictal (Lamotrigine) 200 Mg Tab 200 Mg PO BID Glipizide 5 Mg Tab 5 Mg PO DAILY Active Ordered Medications Current Medications Morphine Sulfate (Morphine Inj) 4 mg STK-MED ONCE .ROUTE ; Start 01/09/18 at 00: 50; Stop 01/09/18 at 00:51; Status DC Sodium Chloride (NS Flush) 2 ml UNSCH PRN IV FLUSH FLUSH AFTER USING IV ACCESS ; Start 01/09/18 at 01:15; Stop 01/09/18 at 02:42; Status DC Nicardipine HCl 25 mg/Sodium Chloride 250 ml @ 50 mls/hr TITRATE PRN IV Blood pressure management Last administered on 01/09/18at 02:02; Start 01/09/18 at 02: 00 Lamotrigine (LaMICtal) 200 mg BID PO ; Start 01/09/18 at 09:00 Pilocarpine HCl (Isopto Carpine 1% Opth Soln) 1 drop Q6HR EACH EYE Last administered on 01/09/18at 06:41; Start 01/09/18 at 06:00 Patient Own Medication PT OWN MED: AZOPT EYE DR... TID EACH EYE ; Start at 09:00 Magnesium Oxide (Mag-Ox) 400 mg DAILY PO ; Start 01/09/18 at 09:00 Sodium Chloride 1,000 ml @ 84 mls/hr [id number] IV ; Start 01/09/18 at 02:29 Sodium Chloride (NS Flush) 2 ml UNSCH PRN IV FLUSH FLUSH AFTER USING IV ACCESS ; Start 01/09/18 at 02:30 Sodium Chloride (NS Flush) 2 ml BID IV FLUSH ; Start 01/09/18 at 09:00 Acetaminophen (Tylenol) 650 mg Q6H PRN PO PAIN 1-5 AND/OR FEVER >101F; Start at 02:30 Morphine Sulfate (Morphine Inj) 2 mg Q2H PRN IV PUSH PAIN SCALE 6 TO 10; Start 01/09/18 at 02:30 Famotidine (Pepcid Inj) 20 mg Q12HR IV PUSH ; Start 01/09/18 at 09:00 Ondansetron HCl (Zofran Inj) 4 mg Q6H PRN IV PUSH NAUSEA OR VOMITING; Start at 02:30 Albuterol/ Ipratropium (Duoneb Neb) 1 ampule Q2HR NEB PRN INH WHEEZING; Start 01/09/18 at 02:30 Miscellaneous Information 1 Q361D XX ; Start 01/09/18 at 02:30 Chlorhexidine Gluconate (Chlorhexidine 2% Cloth) 3 pack Taper DAILY@04 TOP Last administered on 01/09/18at 04:19; Start 01/09/18 at 04:00; Stop 01/05/19 at 03:59 Chlorhexidine Gluconate (Chlorhexidine 2% Cloth) 3 pack UNSCH PRN TOP HYGIENIC CARE; Start 01/09/18 at 02:30 Senna/Docusate Sodium (Tanya-Colace) 1 tab BID PO ; Start 01/09/18 at 09:00 Magnesium Hydroxide (Milk Of Magnesia Liq) 30 ml Q12H PRN PO Mild constipation ; Start 01/09/18 at 02:30 Sennosides (Senokot) 17.2 mg Q12H PRN PO Moderate constipation; Start 01/09/18 at 02:30 Bisacodyl (Dulcolax Supp) 10 mg DAILY PRN RECTAL SEVERE CONSITIPATION/ IF NPO ; Start 01/09/18 at 02:30 Lactulose (Lactulose Liq) 30 ml DAILY PRN PO SEVERE CONSITIPATION/ IF PO; Start 01/09/18 at 02:30 Labetalol HCl (Trandate Inj) 10 mg Q4H PRN IV PUSH SBP>140, DBP>90; Start 01/09 at 03:30 Hydralazine HCl (Apresoline Inj) 20 mg Q4H PRN IV PUSH SBP>140, DBP>90; Start 01/09/18 at 03:30 Nicardipine HCl 25 mg/Sodium Chloride 250 ml @ 50 mls/hr TITRATE PRN IV Blood pressure management Last administered on 01/09/18at 06:15; Start 01/09/18 at 03: 30 Alprazolam (Xanax) 0.25 mg Q8H PRN PO anxiety; Start 01/09/18 at 09:00; Status UNV Family History Father from heart attack in his 30s, no history of strokes or seizures in the family Social History She resides in [place] and is a former smoker and denies alcohol use. Her daughter is a nurse and is here with her. Physical Exam Vital Signs Vital Signs Date Time Temp Pulse Resp B/P (MAP) Pulse Ox O2 Delivery O2 Flow Rate FiO2 01/09/18 06:15 94 148/68 01/09/18 06:00 94 01/09/18 04:00 98 01/09/18 04:00 98.6 98 17 150/65 (93) 94 01/09/18 04:00 94 150/65 01/09/18 02:41 97 16 149/67 (94) 96 Room Air 01/09/18 02:37 100 16 157/69 (98) 94 Room Air 01/09/18 02:31 96 16 161/73 (102) 96 Room Air 01/09/18 02:13 92 16 174/79 (110) 94 Room Air 01/09/18 02:02 87 182/77 01/09/18 01:13 93 Room Air 01/09/18 00:42 88 16 205/84 (124) 96 Room Air 01/09/18 00:34 98.6 88 16 205/84 (124) 92 Physical Exam GENERAL: This is a well-nourished, well-developed patient, in no apparent distress. SKIN: No rashes, ecchymoses or lesions. Cool and dry. HEAD: Atraumatic. Normocephalic. No temporal or scalp tenderness. EYES: Pupils equal round and reactive. Extraocular motions intact. No scleral icterus. No injection or drainage. ENT: Nose without bleeding, purulent drainage or septal hematoma. Throat without erythema, tonsillar hypertrophy or exudate. Uvula midline. Airway patent. NECK: Trachea midline. No JVD or lymphadenopathy. Supple, nontender, no meningeal signs. CARDIOVASCULAR: Regular rate and rhythm without murmurs, gallops, or rubs. RESPIRATORY: Clear to auscultation. Breath sounds equal bilaterally. No wheezes , rales, or rhonchi. GASTROINTESTINAL: Abdomen soft, non-tender, nondistended. No hepato-splenomegaly , or palpable masses. No guarding. MUSCULOSKELETAL: Extremities without clubbing, cyanosis, or edema. No joint tenderness, effusion, or edema noted. No calf tenderness. Negative Homans sign bilaterally. NEUROLOGICAL: Awake and alert. Cranial nerves II through XII intact unable to detect motion in the right eye. Motor and sensory grossly within normal limits. Five out of 5 muscle strength in all muscle groups. Oriented to name but not location or date. Moderate expressive aphasia. Laboratory Laboratory Tests Test 01/09/18 01:05 01/09/18 01:29 White Blood Count 13.1 Red Blood Count 4.30 Hemoglobin 12.7 Hematocrit 38.2 Mean Corpuscular Volume 88.9 Mean Corpuscular Hemoglobin 29.6 Mean Corpuscular Hemoglobin Concent 33.4 Red Cell Distribution Width 14.6 Platelet Count 399 Mean Platelet Volume 9.3 Neutrophils (%) (Auto) 84.8 Lymphocytes (%) (Auto) 11.3 Monocytes (%) (Auto) 2.3 Eosinophils (%) (Auto) 0.8 Basophils (%) (Auto) 0.8 Neutrophils # (Auto) 11.1 Lymphocytes # (Auto) 1.5 Monocytes # (Auto) 0.3 Eosinophils # (Auto) 0.1 Basophils # (Auto) 0.1 CBC Comment DIFF FINAL Differential Comment Prothrombin Time 9.7 Prothromb Time International Ratio 1.0 Activated Partial Thromboplast Time 29.6 Blood Urea Nitrogen 26 Creatinine 1.15 Random Glucose 119 Total Protein 8.2 Albumin 4.4 Calcium Level 9.5 Alkaline Phosphatase 76 Aspartate Amino Transf (AST/SGOT) 22 Alanine Aminotransferase (ALT/SGPT) 26 Total Bilirubin 0.4 Sodium Level 139 Potassium Level 4.7 Chloride Level 103 Carbon Dioxide Level 26.9 Anion Gap 9 Estimat Glomerular Filtration Rate 47 Total Creatine Kinase 132 Troponin I LESS THAN 0.02 Thyroid Stimulating Hormone 3rd Gen 3.010 Ethyl Alcohol Level LESS THAN 3 Lactic Acid Level 0.7 Ammonia 11 Result Diagram: 01/09/1810401/09/18104 Imaging Last Impressions Head CT 01/09/18100 Signed Impressions: Service Date/Time: December 01:16 - CONCLUSION: 1. Left frontal intraparenchymal hemorrhage measuring 3.1 x 2.1 cm with minimal subarachnoid hemorrhage. 2. 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 Kuldip Oh MD Chest X-Ray 01/09/18100 Signed Impressions: Service Date/Time: December 01:09 - CONCLUSION: No acute disease. Kuldip Oh MD Assessment and Plan Assessment and Plan 1. 68-year-old lady with left frontal lobe hemorrhage likely related to hypertension/amyloid angiopathy. She has a previous history of right frontal lobe hemorrhage 2 with associated encephalomalacia. Overall neurologically she has been stable overnight. Continue with hypertension regulation and medical management. Advance diet and activities as as tolerated with the speech therapy and physical therapy involvement. Mechanical DVT prophylaxis will continue with Lamictal for seizure prophylaxis. MRI MRA of the brain to rule out progression of the examination and any underlying abnormality. Close neurologic monitoring in the intensive care unit. 2. Unregulated hypertension on Cardene drip which is controlled now and will need this off off and increase p.o. meds as needed for tree cutter. 3. [id number] diabetes mellitus. Sliding scale coverage. 4. COPD related to smoking which is stable at this point. Discussed with patient and her daughter/family at the bedside and all of their questions answered. Mello Garcia MD Jan 09, 2018 09:19
[2018-01-09] MEDS: DOCUSATE SODIUM 50 MG/SENNA 8.6 MG TAB PO SCH ×2 (09:33→20:13)
[2018-01-09] MEDS: FAMOTIDINE 20 MG/2 ML VIAL IV PUSH SCH ×2 (09:34→20:13)
[2018-01-09] MEDS: SODIUM CHLORIDE 0.9% FLUSH 10 ML FLUSH IV FLUSH SCH ×2 (09:34→20:13)
[2018-01-09] MEDS: MAGNESIUM OXIDE 400 MG TAB PO SCH (09:34)
[2018-01-09] MEDS ORDERED: DEXTROSE 50% IN WATER 50 ML VIAL(D50) IV PUSH PRN (09:45)
[2018-01-09] MEDS ORDERED: POTASSIUM PHOSPHATE MONOBASIC 500 MG TAB PO/TUBE PRN (09:45)
[2018-01-09] MEDS ORDERED: MAGNESIUM OXIDE 400 MG TAB PO PRN (09:45)
[2018-01-09] MEDS ORDERED: POTASSIUM CHLORIDE 25 MEQ EFFERVESCENT TAB PO PRN (09:45)
[2018-01-09] MEDS ORDERED: GLUCAGON 1 MG/ML VIAL OTHER PRN (09:45)
[2018-01-09] MEDS ORDERED: MAGNESIUM SULFATE INJ 2 GM in SODIUM CHLORIDE 0.9% INJ 96 ML IV PRN (09:45)
[2018-01-09] MEDS ORDERED: POTASSIUM CHLOR 20 MEQ PREMIX 100 ML IV PRN ×2 (09:45→11:00)
[2018-01-09] MEDS ORDERED: MAGNESIUM SULFATE INJ 4 GM in SODIUM CHLORIDE 0.9% INJ 92 ML IV PRN (09:45)
[2018-01-09] MEDS ORDERED: POTASSIUM CHLOR 40 MEQ PREMIX 100 ML IV PRN ×2 (09:45→11:00)
[2018-01-09] MEDS ORDERED: SODIUM PHOSPHATE INJ 30 MMOL in SODIUM CHLOR 0.9% 250 ML INJ 240 ML IV PRN (09:45)
[2018-01-09] MEDS ORDERED: POTASSIUM PHOSPHATE INJ 30 MMOL in SODIUM CHLOR 0.9% 250 ML INJ 250 ML IV PRN (09:45)
--- NOTE | 2018-01-09 09:46 | HHI.CCPN ---
Subjective Remarks/Hospital Course 68-year-old female who presents for an evaluation of altered mental status. The patient flew down from [place] with her daughter earlier tonight into [facility]. The patient was noted to have an alteration in her mental status while on the plane by the daughter. The daughter states the patient was digging through her purse, would not talk to the daughter, and appear to be altered, which is not the patient's normal baseline. The patient does have a history of previous frontal lobe intracranial hemorrhage, spontaneous per the daughter's report, but still takes a baby aspirin daily. The patient did complain of a headache earlier today and also noted some nausea and vomiting by the daughter prior to arrival. She however denies any neck pain, chest pain, shortness of breath, abdominal pain, or focal deficits upon arrival. The patient does have a history of partial seizure in the past and was previously on Keppra and Dilantin, however, only takes Lamictal currently. The CT of the head obtained in the emergency department shows left frontal intraparenchymal hemorrhage measuring 3.12.1 cm with a minimal subarachnoid bleed. The case was discussed by ED attending with the neurosurgeon on-call who recommends admission to neuro ICU and conservative management with tight blood pressure control. SUBJECTIVE 01/09: Resting comfortably in bed. Currently on nicardipine drip at 15 mg an hour. Will initiate antihypertensives to control her. Await speech evaluation. Bowel regimen initiated. Objective Vital Signs Date Time Temp Pulse Resp B/P (MAP) Pulse Ox O2 Delivery O2 Flow Rate FiO2 01/09/18 06:15 94 148/68 01/09/18 04:00 98.6 17 94 01/09/18 02:41 Room Air Intake and Output 01/09/18 01/09/18 01/10/18 08:00 16:00 00:00 Intake Total 500 ml Balance 500 ml Result Diagram: 01/09/1810401/09/18104 Imaging Last Impressions Head CT 01/09/18100 Signed Impressions: Service Date/Time: December 01:16 - CONCLUSION: 1. Left frontal intraparenchymal hemorrhage measuring 3.1 x 2.1 cm with minimal subarachnoid hemorrhage. 2. 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 Kuldip Oh MD Chest X-Ray 01/09/18 0101 Signed Impressions: Service Date/Time: December 01:09 - CONCLUSION: No acute disease. Kuldip Oh MD Objective Remarks GENERAL: Well-nourished, well-developed patient. SKIN: Warm and dry. HEAD: Normocephalic. EYES: No scleral icterus. No injection or drainage. NECK: Supple, trachea midline. No JVD or lymphadenopathy. CARDIOVASCULAR: Regular rate and rhythm without murmurs, gallops, or rubs. RESPIRATORY: Breath sounds equal bilaterally. No accessory muscle use. GASTROINTESTINAL: Abdomen soft, non-tender, nondistended. MUSCULOSKELETAL: No cyanosis, or edema. BACK: Nontender without obvious deformity. NEURO EXAM: GCS: 15 Mental Status: The patient is alert and oriented to person, place, and time with normal speech. Cranial Nerves: Visual acuity intact bilaterally. Visual enamorado normal in all quadrants. Pupils are round, reactive to light. Extraocular movements are intact without ptosis. Hearing is normal bilaterally. Voice is normal. Tongue protrudes midline and moves symmetrically. Urinary Catheter: No Assessment to: Continue Vascular Central Line Catheter: No Assessment to: Continue A/P Assessment and Plan Neuro/Psych: Left frontal intraparenchymal hemorrhage 1 x 21 cm with a small subarachnoid hemorrhage Likely old right frontal lobe encephalomalacia Elevated intraocular pressure Seizure disorder NOS CT brain revealed a left frontal and parietal hemorrhage 3 1 x 2.1 centimeters with a small subarachnoid hemorrhage. Old right frontal encephalomalacia Evaluated by neurosurgery and likely amyloid versus hypertensive bleed Recommend MRI MRA brain Continue lamotrigine 200 mg twice daily/home medication/home medication for seizures and seizure prophylaxis Continue pilocarpine 1% 1 drop each eye every 6 hours Continue brinzolamide 1% 1 drop each eye 3 times daily Goal keep systolic pressure less than 140 Acetaminophen 650 mg p.o. every 6 hours as needed pain 1 through 5/fever Morphine sulfate 2 mg IV as needed pain management 6 or 10 Alprazolam 0.25 mg every 8 hours as needed anxiety CV: Hypertension Currently on nicardipine drip at 50 mg an hour. Start carvedilol and KOJO inhibitor orally to wean off IV medication Resp: COPD Nasal cannula to maintain saturations greater than or equal to 92% Incentive spirometry while awake As needed albuterol aerosols every 2 hours for dyspnea GI: Gastroesophageal reflux disease ADA diet Patient is on omeprazole 20 mg p.o. daily at home Docusate sodium/senna 1 tablet twice daily for bowel regimen : Driscoll catheter if indicated Endo: Diabetes mellitus type 2 Sliding scale in with NovoLog with Accu-Cheks before meals at bedtime to maintain euglycemia/medium protocol Patient is on glipizide 5 mg p.o. daily at home Renal: Monitor urine output Accurate I's and O's Heme: Leukocytosis Monitor CBC daily. Follow trends ID: Monitor for signs and symptoms of infection FEN: Patient is on magnesium oxide 250 mg p.o. daily at home MSK: PT/OT evaluate and treat Access --Utilize peripheral IV. Central and if indicated Prophylaxis -GI -famotidine -DVT -SCD/holding pharmacological prophylaxis until okay with neurosurgery Hilario Joiner MD Jan 09, 2018 09:46
[2018-01-09] MEDS: lamoTRIgine 100 MG TAB PO SCH ×2 (10:02→20:13)
[2018-01-09] MEDS ORDERED: POTASSIUM PHOSPHATE MONOBASIC 500 MG TAB PO PRN (11:00)
[2018-01-09] MEDS: INSULIN ASPART SUPPLEMENTAL SCALE SQ SCH ×3 (12:00→21:00)
[2018-01-09] MEDS: CARVEDILOL 6.25 MG TAB PO SCH ×2 (12:18→20:13)
[2018-01-09] MEDS: LISINOPRIL 5 MG TAB PO SCH ×2 (12:18→20:13)
--- NOTE | 2018-01-09 17:52 | RADRPT ---
EXAM DATE/TIME: 01/09/2018 17:27 [facility] COMPARISON: No previous studies available for comparison. INDICATIONS : Hemorrhage. Altered mental status. MEDICAL HISTORY : Diabetes mellitus type 2. Glaucoma. SURGICAL HISTORY : Lumpectomy. Cataracts. Right eye shunt. ENCOUNTER: Subsequent ACUITY: 2 day PAIN SCORE: 0/10 LOCATION: head. Please note a normal MRA of the brain does not entirely exclude the possibility of a small aneurysm, nor the possibility of distal intracranial vessel disease. TECHNIQUE: 3D time of flight MRA was performed. Source images, multiplanar STS MIP, and 3D volume MIP reconstru ctions were reviewed. FINDINGS: There is excellent visualization of the major intracranial arteries out to the second-order branch ve ssels. There is no evidence for aneurysm, vessel truncation or stenosis, and no evidence for vascula r malformation. Prominent branch near the origin of the left posterior cerebral artery CONCLUSION: Normal examination. Area of encephalomalacia involving the right frontal lobe, MRI of the brain is p lanned Khurram Galloway MD on January 09, 2018 at 17:48 Board Certified Radiologist. This report was verified electronically.
--- NOTE | 2018-01-09 17:56 | RADRPT ---
EXAM DATE/TIME: 01/09/2018 17:27 [facility] COMPARISON: MRA BRAIN W/O CONTRAST, January 09, 2018, 17:27. CT BRAIN W/O CONTRAST, January 09, 2018, 1:16. INDICATIONS : Hemorrhage. Altered mental status. MEDICAL HISTORY : Diabetes mellitus type 2. Glaucoma. SURGICAL HISTORY : Lumpectomy. Cataracts. Right eye shunt. ENCOUNTER: Subsequent ACUITY: 2 day PAIN SCORE: 0/10 LOCATION: head. TECHNIQUE: Multiplanar, multisequence MRI of the brain was performed without contrast. FINDINGS: CEREBRUM: There is a 5.6 x 3.7 cm area of encephalomalacia involving the right frontal lobe. There is some surr ounding gliosis. I don't see any surrounding hemorrhage or edema. There is a prominent area of hemorr lexi involving the medial left frontal lobe. There is an area of encephalomalacia in the left deep wh ite matter tracts of the frontal lobe. There some areas of lower signal on the gradient sequences suggesting chronic hemorrhage. POSTERIOR FOSSA: The cerebellum and brainstem are intact. The 4th ventricle is midline. The cerebellopontine angle is unremarkable. The cerebellar tonsils are normal in position. EXTRACRANIAL: The visualized portions of the orbits and paranasal sinuses are unremarkable. CONCLUSION: Area of hemorrhage in the medial left frontal lobe with surrounding diffusion areas of increased sign al possible hemorrhagic stroke. Large areas of encephalomalacia right frontal lobe with some surround ing gliosis. Very similar to the noncontrast head CT in 01/09/18. Khurram Galloway MD on January 09, 2018 at 17:51 Board Certified Radiologist. This report was verified electronically.
[2018-01-10] VITALS (13 sets, daily range): BP systolic 133–146; BP diastolic 59–65; PULSE 76–96; RESP 17–24; TEMP 98–100.8; O2SAT 92–97
[2018-01-10] MEDS: PILOCARPINE HCL 1% OPHT SOLN 15 ML BTL EACH EYE SCH ×3 (00:53→12:00)
[2018-01-10] MEDS: SODIUM CHLOR 0.9% 1000 ML INJ 1,000 ML IV SCH (02:19)
[2018-01-10] MEDS: CHLORHEXIDINE GLUCONATE 2 % 1 PACK (2 CLOTHS) TOP SCH (04:00)
[2018-01-10 05:35] LABS: AUTOMATED NEUTROPHIL # 11.8 TH/MM3 (1.8-7.7); BASOPHIL # 0.1 TH/MM3 (0-0.2); EOSINOPHIL % 0.3 % (0.0-4.0); HEMATOCRIT 35.1 % (35.0-46.0); HEMOGLOBIN 11.7 GM/DL (11.6-15.3); LYMPH % 12.3 % (9.0-44.0); LYMPHOCYTE # 1.7 TH/MM3 (1.0-4.8); MEAN CELL VOLUME 87.2 FL (80.0-100.0); MEAN CORPUSCULAR HEMOGLOBIN 29.1 PG (27.0-34.0); MEAN CORPUSCULAR HGB CONC 33.4 % (32.0-36.0); MEAN PLATELET VOLUME 8.4 FL (7.0-11.0); MONO % 2.7 % (0.0-8.0); MONOCYTE # 0.4 TH/MM3 (0-0.9); NEUT % 83.7 % (16.0-70.0); PLATELET COUNT 419 TH/MM3 (150-450); RED BLOOD COUNT 4.02 MIL/MM3 (4.00-5.30); RED CELL DISTRIBUTION WIDTH 14.3 % (11.6-17.2); WHITE BLOOD COUNT 14.1 TH/MM3 (4.0-11.0)
[2018-01-10 06:32] LABS: ALBUMIN 3.7 GM/DL (3.4-5.0); ALKALINE PHOSPHATASE 69 U/L (45-117); ALT (GPT) 17 U/L (10-53); AST (GOT) 13 U/L (15-37); BICARBONATE 23.3 MEQ/L (21.0-32.0); BLOOD UREA NITROGEN 25 MG/DL (7-18); CALCIUM 9.2 MG/DL (8.5-10.1); CHLORIDE 105 MEQ/L (98-107); CREATININE 0.93 MG/DL (0.50-1.00); GLOMERULAR FILTRATION RATE 60 ML/MIN (>89); GLUCOSE,RANDOM 118 MG/DL (74-106); MAGNESIUM 2.2 MG/DL (1.5-2.5); PHOSPHORUS 3.8 MG/DL (2.5-4.9); SODIUM (NA) 138 MEQ/L (136-145); TOTAL BILIRUBIN ADULT 0.4 MG/DL (0.2-1.0)
[2018-01-10] MEDS: INSULIN ASPART SUPPLEMENTAL SCALE SQ SCH ×4 (08:00→21:00)
--- NOTE | 2018-01-10 08:59 | HHI.NSPN ---
(Kuldip Nash) History Chief Complaint: ICH (Kuldip Nash) Interval History 68-year-old female with an acute onset of confusion and difficulty with his speech started last evening on the flight from [place] to [place]. Patient 's daughter was accompanying her and is a nurse and they are here on vacation visiting her cousin. Subsequently on the drive to her relatives she also had positive vomiting and complained of a headache. She is brought to [facility] emergency room and CT scan of the head reveals a left frontal lobe approximately 3 cm intraparenchymal hemorrhage with small amount of extension into the interhemispheric fissure. There is also right frontal encephalomalacia from a previous hemorrhage several years ago and the daughter relates she also had another small hemorrhage a year ago and was diagnosed with amyloid angiopathy seen by neurology and neurosurgery and no underlying vascular abnormality was found. She also has a history of seizures staring episodes and speech arrest which are transient but has not had a seizure in over a year and has been on Lamictal. She was hypertensive on presentation with systolic blood pressure of 205 and placed on Cardene drip. She denies any headache this morning or any nausea although still is confused with some difficulty with expression of her speech. 01/10/18: Pt awakens to voice. Denies headache, nausea, muscle weakness, difficulty with speech. Nurse reports patient had an episode of vomiting last night. She reportedly also has some difficulty with speech intermittently. (Kuldip Nash) Review of Systems General: Negative for: fever, chills, insomnia Respiratory: Negative for: shortness of breath, cough, sputum Cardiovascular: Negative for: chest pain Gastrointestinal: Positive for: vomitting (last night not today.), Negative for : nausea, diarrhea, constipation (Kuldip Nash) Exam Results Vital Signs Date Time Temp Pulse Resp B/P (MAP) Pulse Ox O2 Delivery O2 Flow Rate FiO2 01/10/18 08:00 98.0 93 17 134/64 (87) 92 01/10/18 07:00 Room Air 01/09/18 10:51 21 Intake and Output 01/10/18 01/10/18 01/11/18 08:00 16:00 00:00 Intake Total 250 ml Balance 250 ml (Kuldip Nash) Physical Examination General: Pt awakens easily in ICU in NAD with stable vitals. Eyes: Pupils equal. Sclera anicteric. Resp: CTA bilaterally Heart: NSR no murmurs Abd: Soft positive bs Skin: No cyanosis or erythema. SCDs in place. Muscle: Moves all 4 extremities symmetrically. Neuro: Pt awakens to voice. Pupils are 3 mm bilaterally. Patient follows commands. She verbalizes when prompted to. Appears to answers questions appropriately although has some mild confusion about why she is in the hospital. (Kuldip Nash) Lab, Micro, Other Results Last Impressions Head CT 01/09/18 010 Signed Impressions: Service Date/Time: December 01:16 - CONCLUSION: 1. Left frontal intraparenchymal hemorrhage measuring 3.1 x 2.1 cm with minimal subarachnoid hemorrhage. 2. 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 Kuldip Oh MD Chest X-Ray 01/09/18 010 Signed Impressions: Service Date/Time: December 01:09 - CONCLUSION: No acute disease. Kuldip Oh MD Head Magnetic Resonance Angiography 01/09/18 0000 Signed Impressions: Service Date/Time: December 17:27 - CONCLUSION: Normal examination. Area of encephalomalacia involving the right frontal lobe, MRI of the brain is planned Khurram Galloway MD Brain MRI 01/09/18 0000 Signed Impressions: Service Date/Time: December 17:27 - CONCLUSION: Area of hemorrhage in the medial left frontal lobe with surrounding diffusion areas of increased signal possible hemorrhagic stroke. Large areas of encephalomalacia right frontal lobe with some surrounding gliosis. Very similar to the noncontrast head CT in 01/09/18. Khurram Galloway MD Laboratory Tests Test 01/10/18 05:11 White Blood Count 14.1 TH/MM3 Red Blood Count 4.02 MIL/MM3 Hemoglobin 11.7 GM/DL Hematocrit 35.1 % Mean Corpuscular Volume 87.2 FL Mean Corpuscular Hemoglobin 29.1 PG Mean Corpuscular Hemoglobin Concent 33.4 % Red Cell Distribution Width 14.3 % Platelet Count 419 TH/MM3 Mean Platelet Volume 8.4 FL Neutrophils (%) (Auto) 83.7 % Lymphocytes (%) (Auto) 12.3 % Monocytes (%) (Auto) 2.7 % Eosinophils (%) (Auto) 0.3 % Basophils (%) (Auto) 1.0 % Neutrophils # (Auto) 11.8 TH/MM3 Lymphocytes # (Auto) 1.7 TH/MM3 Monocytes # (Auto) 0.4 TH/MM3 Eosinophils # (Auto) 0.0 TH/MM3 Basophils # (Auto) 0.1 TH/MM3 CBC Comment DIFF FINAL Differential Comment Prothrombin Time 10.0 SEC Prothromb Time International Ratio 1.0 RATIO Activated Partial Thromboplast Time 28.7 SEC Blood Urea Nitrogen 25 MG/DL Creatinine 0.93 MG/DL Random Glucose 118 MG/DL Total Protein 7.0 GM/DL Albumin 3.7 GM/DL Calcium Level 9.2 MG/DL Phosphorus Level 3.8 MG/DL Magnesium Level 2.2 MG/DL Alkaline Phosphatase 69 U/L Aspartate Amino Transf (AST/SGOT) 13 U/L Alanine Aminotransferase (ALT/SGPT) 17 U/L Total Bilirubin 0.4 MG/DL Sodium Level 138 MEQ/L Potassium Level 4.2 MEQ/L Chloride Level 105 MEQ/L Carbon Dioxide Level 23.3 MEQ/L Anion Gap 10 MEQ/L Estimat Glomerular Filtration Rate 60 ML/MIN (Kuldip Nash) Medical Decision Making Impression and Plan A: 68-year-old lady with left frontal lobe hemorrhage likely related to hypertension/amyloid angiopathy. She has a previous history of right frontal lobe hemorrhage 2 with associated encephalomalacia. Overall neurologically she has been stable overnight. P: Continue with hypertension regulation and medical management. Pt has been off Cardene since last night, continue to monitor. Advance diet and activities as as tolerated with the speech therapy and physical therapy involvement. Mechanical DVT prophylaxis will continue with Lamictal for seizure prophylaxis. MRI MRA of the brain to rule out progression of the examination and any underlying abnormality. Close neurologic monitoring in the intensive care unit. [id number] diabetes mellitus. Sliding scale coverage. COPD related to smoking which is stable at this point. Speech therapy for speech and cognitive evaluation. Continue with PT/OT (Kludip Nash) Attending Statement The exam, history, and the medical decision-making described in the above note were completed with the assistance of the mid-level provider. I reviewed and agree with the findings presented. I attest that I had a [id number] encounter with the patient on the same day, and personally performed and documented my assessment and findings in the medical record. Stable examination. MRI scan with the left frontal lobe hemorrhage stable when compared to the CT scan on admission. MR angiogram of the brain with no undergoing vascular abnormality. Hypertension regularly. Increase activity status as tolerated. Discussed with the daughter at bedside. (Mello Garcia MD) Kuldip Nash Jan 10, 2018 08:59 Mello Garcia MD Jan 10, 2018 14:16
[2018-01-10] MEDS: SODIUM CHLORIDE 0.9% FLUSH 10 ML FLUSH IV FLUSH SCH ×2 (09:00→21:00)
[2018-01-10] MEDS: CARVEDILOL 6.25 MG TAB PO SCH ×2 (09:15→20:35)
[2018-01-10] MEDS: DOCUSATE SODIUM 50 MG/SENNA 8.6 MG TAB PO SCH ×2 (09:15→20:36)
[2018-01-10] MEDS: MAGNESIUM OXIDE 400 MG TAB PO SCH (09:15)
[2018-01-10] MEDS: FAMOTIDINE 20 MG/2 ML VIAL IV PUSH SCH (09:15)
[2018-01-10] MEDS: LISINOPRIL 5 MG TAB PO SCH ×2 (09:15→20:36)
[2018-01-10] MEDS: lamoTRIgine 100 MG TAB PO SCH ×2 (09:16→20:36)
--- NOTE | 2018-01-10 09:40 | HHI.CCPN ---
Subjective Remarks/Hospital Course 68-year-old female who presents for an evaluation of altered mental status. The patient flew down from [place] with her daughter earlier tonight into [facility]. The patient was noted to have an alteration in her mental status while on the plane by the daughter. The daughter states the patient was digging through her purse, would not talk to the daughter, and appear to be altered, which is not the patient's normal baseline. The patient does have a history of previous frontal lobe intracranial hemorrhage, spontaneous per the daughter's report, but still takes a baby aspirin daily. The patient did complain of a headache earlier today and also noted some nausea and vomiting by the daughter prior to arrival. She however denies any neck pain, chest pain, shortness of breath, abdominal pain, or focal deficits upon arrival. The patient does have a history of partial seizure in the past and was previously on Keppra and Dilantin, however, only takes Lamictal currently. The CT of the head obtained in the emergency department shows left frontal intraparenchymal hemorrhage measuring 3.12.1 cm with a minimal subarachnoid bleed. The case was discussed by ED attending with the neurosurgeon on-call who recommends admission to neuro ICU and conservative management with tight blood pressure control. 01/09: Resting comfortably in bed. Currently on nicardipine drip at 15 mg an hour. Will initiate antihypertensives to control her. Await speech evaluation. Bowel regimen initiated. SUBJECTIVE 01/10: T-max 100.8. Currently 98. One bowel movement. Nicardipine drip off since 10 PM 01/09. Intermittent confusion otherwise neurologically intact. MRI brain 01/09 revealed stable left medial frontal hemorrhage. Tolerating diabetic diet. Objective Vital Signs Date Time Temp Pulse Resp B/P (MAP) Pulse Ox O2 Delivery O2 Flow Rate FiO2 01/10/18 09:11 95 Nasal Cannula 2.00 01/10/18 08:00 98.0 93 17 134/64 (87) 01/09/18 10:51 21 Intake and Output 01/10/18 01/10/18 01/11/18 08:00 16:00 00:00 Intake Total 250 ml Balance 250 ml Result Diagram: 01/10/18 0511 01/10/18 0511 Imaging Last Impressions Head CT 01/09/18 0101 Signed Impressions: Service Date/Time: December 01:16 - CONCLUSION: 1. Left frontal intraparenchymal hemorrhage measuring 3.1 x 2.1 cm with minimal subarachnoid hemorrhage. 2. 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 Kuldip Oh MD Chest X-Ray 01/09/18 0101 Signed Impressions: Service Date/Time: December 01:09 - CONCLUSION: No acute disease. Kuldip Oh MD Head Magnetic Resonance Angiography 01/09/18 0000 Signed Impressions: Service Date/Time: December 17:27 - CONCLUSION: Normal examination. Area of encephalomalacia involving the right frontal lobe, MRI of the brain is planned Khurram Galloway MD Brain MRI 01/09/18 0000 Signed Impressions: Service Date/Time: December 17:27 - CONCLUSION: Area of hemorrhage in the medial left frontal lobe with surrounding diffusion areas of increased signal possible hemorrhagic stroke. Large areas of encephalomalacia right frontal lobe with some surrounding gliosis. Very similar to the noncontrast head CT in 01/09/18. Khurram Galloway MD Objective Remarks GENERAL: 68-year-old female currently resting in bed in no acute distress SKIN: Warm and dry. HEAD: Normocephalic. EYES: No scleral icterus. No injection or drainage. NECK: Supple, trachea midline. No JVD or lymphadenopathy. CARDIOVASCULAR: RRR. S1, S3 no strip without murmur RESPIRATORY: Breath sounds equal bilaterally. No accessory muscle use. GASTROINTESTINAL: Abdomen soft, non-tender, nondistended. MUSCULOSKELETAL: No significant peripheral edema. NEURO EXAM: Cranial nerves II through XII grossly intact. Strength is equal and symmetric. Normal sensation. Expressive and receptive aphasia. Vascular Central Line Catheter: No Assessment to: Continue A/P Assessment and Plan Neuro/Psych: Left frontal intraparenchymal hemorrhage 1 x 21 cm with a small subarachnoid hemorrhage Likely old right frontal lobe encephalomalacia Elevated intraocular pressure Seizure disorder NOS Expressive and receptive aphasia CT brain revealed a left frontal and parietal hemorrhage 3 1 x 2.1 centimeters with a small subarachnoid hemorrhage. Old right frontal encephalomalacia Evaluated by neurosurgery and likely amyloid versus hypertensive bleed 01/09 MRI MRA brain revealed stable left frontal hemorrhagic CVA and old right frontal CVA/encephalomalacia. MRA brain negative. Continue lamotrigine 200 mg twice daily/home medication/home medication for seizures and seizure prophylaxis Continue pilocarpine 1% 1 drop each eye every 6 hours Continue brinzolamide 1% 1 drop each eye 3 times daily Goal keep systolic pressure less than 140 Acetaminophen 650 mg p.o. every 6 hours as needed pain 1 through 5/fever Morphine sulfate 2 mg IV every 2 hours as needed pain management 6 or 10 Alprazolam 0.25 mg every 8 hours as needed anxiety CV: Hypertension Currently off nicardipine drip. Carvedilol 12 mg twice daily lisinopril 5 mg twice daily As needed labetalol/nicardipine drip if needed Resp: COPD Nasal cannula to maintain saturations greater than or equal to 92% Incentive spirometry while awake As needed albuterol aerosols every 2 hours for dyspnea GI: Gastroesophageal reflux disease ADA diet Patient is on omeprazole 20 mg p.o. daily at home. Currently on pantoprazole 20 mg daily Docusate sodium/senna 1 tablet twice daily for bowel regimen : Driscoll catheter if indicated Endo: Diabetes mellitus type 2 Sliding scale in with NovoLog with Accu-Cheks before meals at bedtime to maintain euglycemia/medium protocol Patient is on glipizide 5 mg p.o. daily at home Renal: Monitor urine output Accurate I's and O's Heme: Leukocytosis Monitor CBC daily. Follow trends ID: Monitor for signs and symptoms of infection FEN: Patient is on magnesium oxide 250 mg p.o. daily at home MSK: PT/OT evaluate and treat Access --Utilize peripheral IV. Central and if indicated Prophylaxis -GI -famotidine -DVT -SCD/holding pharmacological prophylaxis until okay with neurosurgery Level 2 follow-up Stable from critical care medicine standpoint. Assign care to hospitalist in a.m. 01/11. Hilario Joiner MD Jan 10, 2018 09:40
--- NOTE | 2018-01-10 13:38 | EKG ---
Date Performed: 01/09/2018 Time Performed: 00:39:57 PTAGE: 68 years EKG: Sinus rhythm NORMAL ECG NO PREVIOUS TRACING DOCTOR: Deandre Castillo Interpretating Date/Time 01/10/2018 13:36:07
[2018-01-10] MEDS: PILOCARPINE HCL 2% OPHT SOLN 15 ML BTL EACH EYE SCH ×2 (18:00→21:00)
[2018-01-10] MEDS: LATANOPROST 0.005% OPHT SOLN 2.5 ML BTL LEFT EYE SCH (20:36)
[2018-01-10] MEDS ORDERED: BRINZOLAMIDE EACH EYE SCH (21:00)
[2018-01-10] MEDS: hydrALAZINE HCL 20 MG/ML VIAL IV PUSH PRN (23:29)
[2018-01-11] VITALS (13 sets, daily range): BP systolic 138–169; BP diastolic 64–77; PULSE 73–84; RESP 19–32; TEMP 97.8–98.9; O2SAT 92–97
[2018-01-11] MEDS: CHLORHEXIDINE GLUCONATE 2 % 1 PACK (2 CLOTHS) TOP SCH (04:00)
[2018-01-11] MEDS: hydrALAZINE HCL 20 MG/ML VIAL IV PUSH PRN ×4 (04:30→13:56)
[2018-01-11 04:51] LABS: HEMATOCRIT 37.3 % (35.0-46.0); HEMOGLOBIN 12.4 GM/DL (11.6-15.3); MEAN CELL VOLUME 87.8 FL (80.0-100.0); MEAN CORPUSCULAR HEMOGLOBIN 29.2 PG (27.0-34.0); MEAN CORPUSCULAR HGB CONC 33.2 % (32.0-36.0); MEAN PLATELET VOLUME 8.7 FL (7.0-11.0); PLATELET COUNT 436 TH/MM3 (150-450); RED BLOOD COUNT 4.25 MIL/MM3 (4.00-5.30); RED CELL DISTRIBUTION WIDTH 14.8 % (11.6-17.2); WHITE BLOOD COUNT 15.3 TH/MM3 (4.0-11.0)
[2018-01-11 05:06] LABS: BICARBONATE 24.8 MEQ/L (21.0-32.0); CALCIUM 9.2 MG/DL (8.5-10.1); CREATININE 0.96 MG/DL (0.50-1.00)
[2018-01-11] MEDS: INSULIN ASPART SUPPLEMENTAL SCALE SQ SCH ×4 (08:00→21:00)
[2018-01-11] MEDS: PANTOPRAZOLE SOD 20 MG DELAYED RELEASE TAB PO SCH (08:05)
[2018-01-11] MEDS: DOCUSATE SODIUM 50 MG/SENNA 8.6 MG TAB PO SCH ×2 (08:05→21:47)
[2018-01-11] MEDS: CARVEDILOL 6.25 MG TAB PO SCH ×2 (08:05→21:47)
[2018-01-11] MEDS: MAGNESIUM OXIDE 400 MG TAB PO SCH (08:05)
[2018-01-11] MEDS: LISINOPRIL 5 MG TAB PO SCH (08:05)
[2018-01-11] MEDS: TIOTROPIUM BROMIDE 18 MCG INH INH SCH (08:06)
[2018-01-11] MEDS: PILOCARPINE HCL 2% OPHT SOLN 15 ML BTL EACH EYE SCH ×4 (08:06→21:48)
[2018-01-11] MEDS: SODIUM CHLORIDE 0.9% FLUSH 10 ML FLUSH IV FLUSH SCH ×2 (08:06→21:48)
[2018-01-11] MEDS: lamoTRIgine 100 MG TAB PO SCH ×2 (09:44→21:47)
--- NOTE | 2018-01-11 11:41 | HHI.PR ---
Subjective Remarks 68-year-old female who presents for an evaluation of altered mental status. The patient flew down from [place] with her daughter earlier tonight into [facility]. The patient was noted to have an alteration in her mental status while on the plane by the daughter. The daughter states the patient was digging through her purse, would not talk to the daughter, and appear to be altered, which is not the patient's normal baseline. The patient does have a history of previous frontal lobe intracranial hemorrhage, spontaneous per the daughter's report, but still takes a baby aspirin daily. The patient did complain of a headache earlier today and also noted some nausea and vomiting by the daughter prior to arrival. She however denies any neck pain, chest pain, shortness of breath, abdominal pain, or focal deficits upon arrival. The patient does have a history of partial seizure in the past and was previously on Keppra and Dilantin, however, only takes Lamictal currently. The CT of the head obtained in the emergency department shows left frontal intraparenchymal hemorrhage measuring 3.12.1 cm with a minimal subarachnoid bleed. The case was discussed by ED attending with the neurosurgeon on-call who recommends admission to neuro ICU and conservative management with tight blood pressure control. 01/11/18: Patient is stable. She reports feeling ok. No new issues. Have not been out of bed yet. Objective Vitals Vital Signs Date Time Temp Pulse Resp B/P (MAP) Pulse Ox O2 Delivery O2 Flow Rate FiO2 01/11/18 09:55 95 Nasal Cannula 2.00 01/11/18 06:00 84 01/11/18 04:00 98.3 79 25 164/73 (103) 95 01/11/18 04:00 79 01/11/18 02:00 78 01/11/18 00:00 97.8 81 22 141/65 (90) 95 01/11/18 00:00 81 01/10/18 22:00 76 01/10/18 20:00 98.8 76 20 146/65 (92) 92 01/10/18 20:00 96 01/10/18 19:00 92 Room Air 01/10/18 18:00 89 01/10/18 16:00 98.4 80 20 144/65 (91) 92 01/10/18 16:00 85 01/10/18 14:00 86 01/10/18 12:00 85 01/10/18 12:00 98.0 82 18 97 I/O 01/10/18 01/10/18 01/10/18 01/11/18 01/11/18 01/11/18 06:59 14:59 22:59 06:59 14:59 22:59 Intake Total 250 ml 1000 ml Output Total 50 ml Balance 250 ml -50 ml 1000 ml Intake Oral 250 ml IV Total 1000 ml Output Stool Total 50 ml # Voids 5 3 2 # Bowel Movements 1 1 0 Result Diagram: 01/11/1840601/11/18406 Objective Remarks GENERAL: This is a well-nourished, well-developed patient, in no apparent distress. CARDIOVASCULAR: Normal rate and regular rhythm without murmurs, gallops, or rubs. RESPIRATORY: Good respiratory efforts. Breath sounds equal and clear to auscultation bilaterally. GASTROINTESTINAL: Abdomen soft, non-tender, non-distended. Normal active bowel sounds MUSCULOSKELETAL: Extremities without cyanosis, or edema. NEURO: Alert & Oriented x4 to person, place. Does not know the year. Moves all ext x4. Mild expressive aphasia PSYCH: Appropriate mood and affect. A/P Assessment and Plan Left frontal intraparenchymal hemorrhage 1 x 21 cm with a small subarachnoid hemorrhage Likely old right frontal lobe encephalomalacia Elevated intraocular pressure Seizure disorder NOS Expressive and receptive aphasia CT brain revealed a left frontal and parietal hemorrhage 3 1 x 2.1 centimeters with a small subarachnoid hemorrhage. Old right frontal encephalomalacia Evaluated by neurosurgery and likely amyloid versus hypertensive bleed 01/09 MRI MRA brain revealed stable left frontal hemorrhagic CVA and old right frontal CVA/encephalomalacia. MRA brain negative. Continue lamotrigine 200 mg twice daily/home medication/home medication for seizures and seizure prophylaxis Continue pilocarpine 1% 1 drop each eye every 6 hours Continue brinzolamide 1% 1 drop each eye 3 times daily Goal keep systolic pressure less than 140 Acetaminophen 650 mg p.o. every 6 hours as needed pain 1 through 5/fever Morphine sulfate 2 mg IV every 2 hours as needed pain management 6 or 10 Alprazolam 0.25 mg every 8 hours as needed anxiety Hypertension Status post nicardipine drip. Carvedilol 12 mg twice daily lisinopril 5 mg twice daily As needed labetalol/nicardipine drip if needed COPD Not in exacerbation. Nasal cannula to maintain saturations greater than or equal to 92% Incentive spirometry while awake As needed albuterol aerosols every 2 hours for dyspnea Gastroesophageal reflux disease Continue PPI Diabetes mellitus type 2 Sliding scale in with NovoLog with Accu-Cheks before meals at bedtime to maintain euglycemia/medium protocol Patient is on glipizide 5 mg p.o. daily at home Prophylaxis -GI -famotidine -DVT -SCD/holding pharmacological prophylaxis until okay with neurosurgery Discharge Planning Okay to transfer to floor. PT to evaluate. May need rehab versus home with home health care. Jessica Calixto MD Jan 11, 2018 11:41
[2018-01-11] MEDS: SODIUM CHLORIDE 0.9% FLUSH 10 ML FLUSH IV FLUSH PRN (13:00)
[2018-01-11] MEDS ORDERED: LISINOPRIL 5 MG TAB PO ONE (14:30)
[2018-01-11] MEDS: niCARdipine INJ 25 MG in SODIUM CHLOR 0.9% 250 ML INJ 240 ML IV PRN ×2 (14:30→22:05)
--- NOTE | 2018-01-11 16:12 | RADRPT ---
EXAM DATE/TIME: 01/11/2018 15:54 [facility] COMPARISON: CT BRAIN W/O CONTRAST, January 09, 2018, 1:16. INDICATIONS : History of hemorage now patient is unresponsive. RADIATION DOSE: 56.35 CTDIvol (mGy) MEDICAL HISTORY : Cerebrovascular disease. Seizures. Chronic obstructive pulmonary disease.Hypertension SURGICAL HISTORY : None. ENCOUNTER: Initial ACUITY: 1 day PAIN SCALE: Non-responsive LOCATION: cranial TECHNIQUE: Multiple contiguous axial images were obtained of the head. Using automated exposure control and adj ustment of the mA and/or kV according to patient size, radiation dose was kept as low as reasonably a chievable to obtain optimal diagnostic quality images. DICOM format image data is available electro nically for review and comparison. FINDINGS: CEREBRUM: Left frontal intraparenchymal hemorrhage has massively change. Minimal adjacent vasogenic edema. No s hift. Encephalomalacia on the right. Minimal extra-axial hemorrhage and subarachnoid hemorrhage. The ventricles are normal for age. No evidence of midline shift, mass lesion or acute infarction. POSTERIOR FOSSA: The cerebellum and brainstem are intact. The 4th ventricle is midline. The cerebellopontine angle i s unremarkable. EXTRACRANIAL: The visualized portion of the orbits is intact. SKULL: The calvaria is intact. No evidence of skull fracture. CONCLUSION: 1. Left frontal hemorrhage not simply change. No midline shift. 2. Encephalomalacia in the right frontal lobe, unchanged. 3. Minimal new extra-axial hemorrhage in the right frontal region adjacent to the encephalomalacia. Kuldip Oh MD on January 11, 2018 at 16:08 Board Certified Radiologist. This report was verified electronically.
[2018-01-11] MEDS: LATANOPROST 0.005% OPHT SOLN 2.5 ML BTL LEFT EYE SCH (21:00)
[2018-01-11] MEDS: LISINOPRIL 10 MG TAB PO SCH (21:47)
[2018-01-12] VITALS (13 sets, daily range): BP systolic 130–152; BP diastolic 59–67; PULSE 68–82; RESP 20–24; TEMP 97.9–98.8; O2SAT 91–96
[2018-01-12] MEDS: CHLORHEXIDINE GLUCONATE 2 % 1 PACK (2 CLOTHS) TOP SCH (04:00)
[2018-01-12] MEDS: ENALAPRILAT 1.25 MG/ML VIAL IV PUSH PRN (06:00)
[2018-01-12] MEDS: niCARdipine INJ 25 MG in SODIUM CHLOR 0.9% 250 ML INJ 240 ML IV PRN ×4 (06:01→22:22)
[2018-01-12] MEDS: INSULIN ASPART SUPPLEMENTAL SCALE SQ SCH ×4 (08:00→21:00)
[2018-01-12] MEDS: DOCUSATE SODIUM 50 MG/SENNA 8.6 MG TAB PO SCH ×2 (08:38→21:00)
[2018-01-12] MEDS: lamoTRIgine 100 MG TAB PO SCH ×2 (08:38→21:00)
[2018-01-12] MEDS: LISINOPRIL 10 MG TAB PO SCH ×2 (08:38→21:00)
[2018-01-12] MEDS: PANTOPRAZOLE SOD 20 MG DELAYED RELEASE TAB PO SCH (08:38)
[2018-01-12] MEDS: SODIUM CHLORIDE 0.9% FLUSH 10 ML FLUSH IV FLUSH SCH ×2 (08:39→21:47)
[2018-01-12] MEDS: CARVEDILOL 6.25 MG TAB PO SCH ×2 (08:39→21:00)
[2018-01-12] MEDS: MAGNESIUM OXIDE 400 MG TAB PO SCH (08:39)
[2018-01-12] MEDS: TIOTROPIUM BROMIDE 18 MCG INH INH SCH (08:40)
[2018-01-12] MEDS: PILOCARPINE HCL 2% OPHT SOLN 15 ML BTL EACH EYE SCH ×4 (08:40→21:00)
--- NOTE | 2018-01-12 10:16 | HHI.NSPN ---
History Chief Complaint: ICH Interval History Patient reports she is doing well. Nurses report she has been stable Exam Results Vital Signs Date Time Temp Pulse Resp B/P (MAP) Pulse Ox O2 Delivery O2 Flow Rate FiO2 01/12/18 06:01 84 144/66 01/12/18 04:00 98.5 20 91 01/11/18 19:00 Nasal Cannula 2.00 01/09/18 10:51 21 Intake and Output 01/12/18 01/12/18 01/13/18 08:00 16:00 00:00 Output Total 400 ml Balance -400 ml Physical Examination Patient alert and awake. Sitting up in bed. Follows commands well. Oriented to time and place. Moves all extremities well. Mild tachypnea Lab, Micro, Other Results CT scan reviewed. Previous hemorrhage appears stable. There appears to be new areas of subarachnoid blood in all encephalomalacic area. Medical Decision Making Impression and Plan Patient is neurologically stable. CT shows some new areas of bleeding in all area of encephalomalacia. Patient will need to be watched in ICU for 24 to 48 hours. Driss Maciel MD Jan 12, 2018 10:16
[2018-01-12] MEDS: RESP: ALBUTEROL 2.5 MG/3 ML NEB (PRN) NEB ×2 (10:51→15:04)
[2018-01-12] MEDS ORDERED: INSULIN ASPART SUPPLEMENTAL SCALE SQ SCH (11:00)
--- NOTE | 2018-01-12 11:02 | HHI.PR ---
Subjective Remarks Mental status has been waxing and waning. Aware of self and place but still with confusion and aphasia. Objective Vitals Vital Signs Date Time Temp Pulse Resp B/P (MAP) Pulse Ox O2 Delivery O2 Flow Rate FiO2 01/12/18 10:00 77 01/12/18 08:00 92 Nasal Cannula 2.00 01/12/18 08:00 98.2 74 24 152/67 (95) 92 01/12/18 08:00 79 01/12/18 06:01 84 144/66 01/12/18 06:00 82 01/12/18 04:00 77 01/12/18 04:00 98.5 77 20 132/59 (83) 91 01/12/18 02:00 98.4 82 20 144/63 (90) 96 01/12/18 02:00 79 01/12/18 00:00 79 01/11/18 22:05 77 137/64 01/11/18 22:00 77 01/11/18 20:00 98.9 78 20 138/65 (89) 96 01/11/18 20:00 78 01/11/18 19:00 96 Nasal Cannula 2.00 01/11/18 18:00 76 01/11/18 16:00 76 01/11/18 16:00 98.2 76 24 147/64 (91) 92 01/11/18 14:30 78 162/70 01/11/18 14:00 78 01/11/18 12:00 98.7 73 32 162/77 (105) 97 01/11/18 12:00 73 I/O 01/11/18 01/11/18 01/11/18 01/12/18 01/12/18 01/12/18 07:00 15:00 23:00 07:00 15:00 23:00 Intake Total 1000 ml 240 ml 240 ml Output Total 0 ml 0 ml 400 ml Balance 1000 ml 240 ml 240 ml -400 ml Intake Oral 240 ml 240 ml IV Total 1000 ml Output Urine Total 400 ml Stool Total 0 ml 0 ml # Voids 2 3 3 2 # Bowel Movements 0 0 0 0 Result Diagram: 01/11/1840601/11/18406 Objective Remarks GENERAL: This is a well-nourished, well-developed patient, in no apparent distress. CARDIOVASCULAR: Normal rate and regular rhythm without murmurs, gallops, or rubs. RESPIRATORY: Good respiratory efforts. Some upper airway transmission sound. Weak cough. Breath sounds equal and clear to auscultation bilaterally. GASTROINTESTINAL: Abdomen soft, non-tender, non-distended. Normal active bowel sounds MUSCULOSKELETAL: Extremities without cyanosis, or edema. NEURO: Alert & Oriented to self and place. Referred to her daughter as mom. Moves all ext x4. Mild expressive aphasia PSYCH: Appropriate mood and affect. A/P Assessment and Plan Left frontal intraparenchymal hemorrhage 1 x 21 cm with a small subarachnoid hemorrhage. Repeat CT on 01/11 shows small new extra axial hemorrhage. Likely old right frontal lobe encephalomalacia Elevated intraocular pressure Seizure disorder NOS Expressive and receptive aphasia CT brain revealed a left frontal and parietal hemorrhage 3 1 x 2.1 centimeters with a small subarachnoid hemorrhage. Old right frontal encephalomalacia Evaluated by neurosurgery and likely amyloid versus hypertensive bleed 01/09 MRI MRA brain revealed stable left frontal hemorrhagic CVA and old right frontal CVA/encephalomalacia. MRA brain negative. CT on 01/11 shows small new extra axial hemorrhage. Neurosurgery following. Continue lamotrigine 200 mg twice daily/home medication/home medication for seizures and seizure prophylaxis Continue pilocarpine 1% 1 drop each eye every 6 hours Continue brinzolamide 1% 1 drop each eye 3 times daily Goal keep systolic pressure less than 140 Acetaminophen 650 mg p.o. every 6 hours as needed pain 1 through 5/fever Morphine sulfate 2 mg IV every 2 hours as needed pain management 6 or 10 Alprazolam 0.25 mg every 8 hours as needed anxiety Hypertension Status post nicardipine drip. Carvedilol 12 mg twice daily. Increase Lisinopril to 10 mg BID. Keep SBP <140 As needed labetalol/nicardipine drip if needed COPD Nasal cannula to maintain saturations greater than or equal to 92% Incentive spirometry while awake As needed albuterol aerosols every 2 hours for dyspnea Gastroesophageal reflux disease/Dysphagia PABLITO RN, some concerns. Will ask speech to evaluate. Continue PPI Diabetes mellitus type 2 Sliding scale in with NovoLog with Accu-Cheks before meals at bedtime to maintain euglycemia/medium protocol Patient is on glipizide 5 mg p.o. daily at home Prophylaxis -GI -PPI -DVT -SCD/holding pharmacological prophylaxis until okay with neurosurgery Discharge Planning Keep in ICU. Patient still critical with ICH. Follow neuro status closely. Jessica Calixto MD Jan 12, 2018 11:02
[2018-01-12] MEDS ORDERED: RESP: ALBUTEROL 2.5 MG/IPRATROPIUM 0.5 MG NEB (PRN) NEB (12:00)
[2018-01-12] MEDS ORDERED: SODIUM CHLOR 0.9% 1000 ML INJ 1,000 ML IV ONE (16:15)
[2018-01-12] MEDS: LATANOPROST 0.005% OPHT SOLN 2.5 ML BTL LEFT EYE SCH (21:47)
[2018-01-13] VITALS (15 sets, daily range): BP systolic 103–144; BP diastolic 51–63; PULSE 73–86; RESP 24–31; TEMP 97.9–98.6; O2SAT 92–99
[2018-01-13] MEDS: SODIUM CHLORIDE 0.9% FLUSH 10 ML FLUSH IV FLUSH PRN ×2 (02:54→05:14)
[2018-01-13] MEDS: hydrALAZINE HCL 20 MG/ML VIAL IV PUSH PRN ×2 (02:54→21:54)
[2018-01-13] MEDS: niCARdipine INJ 25 MG in SODIUM CHLOR 0.9% 250 ML INJ 240 ML IV PRN ×3 (02:54→10:04)
[2018-01-13] MEDS: CHLORHEXIDINE GLUCONATE 2 % 1 PACK (2 CLOTHS) TOP SCH ×2 (04:00→23:26)
[2018-01-13] MEDS: ENALAPRILAT 1.25 MG/ML VIAL IV PUSH PRN (05:14)
--- NOTE | 2018-01-13 05:21 | RADRPT ---
EXAM DATE/TIME: 01/13/2018 04:21 [facility] COMPARISON: CHEST SINGLE AP, January 09, 2018, 1:09. INDICATIONS : Short of breath. MEDICAL HISTORY : None. SURGICAL HISTORY : None. ENCOUNTER: Subsequent ACUITY: 1 week PAIN SCORE: 0/10 LOCATION: Bilateral chest FINDINGS: A single view of the chest demonstrates the lungs to be symmetrically aerated with minimal bibasilar atelectatic changes. Lungs are otherwise clear heart size is normal. Osseous structures are intact. CONCLUSION: Minimal bibasilar atelectatic changes. Otherwise negative. Kevin Forrester MD on January 13, 2018 at 5:18 Board Certified Radiologist. This report was verified electronically.
[2018-01-13] MEDS: INSULIN ASPART SUPPLEMENTAL SCALE SQ SCH ×4 (08:00→21:00)
[2018-01-13] MEDS: PILOCARPINE HCL 2% OPHT SOLN 15 ML BTL EACH EYE SCH ×4 (08:51→20:07)
[2018-01-13] MEDS: TIOTROPIUM BROMIDE 18 MCG INH INH SCH (08:51)
[2018-01-13] MEDS: SODIUM CHLORIDE 0.9% FLUSH 10 ML FLUSH IV FLUSH SCH ×2 (08:52→20:06)
--- NOTE | 2018-01-13 10:58 | HHI.NSPN ---
(Kuldip Nash) History Chief Complaint: ICH (Kuldip Nash) Interval History 68-year-old female with an acute onset of confusion and difficulty with his speech started last evening on the flight from [place] to [place]. Patient 's daughter was accompanying her and is a nurse and they are here on vacation visiting her cousin. Subsequently on the drive to her relatives she also had positive vomiting and complained of a headache. She is brought to [facility] emergency room and CT scan of the head reveals a left frontal lobe approximately 3 cm intraparenchymal hemorrhage with small amount of extension into the interhemispheric fissure. There is also right frontal encephalomalacia from a previous hemorrhage several years ago and the daughter relates she also had another small hemorrhage a year ago and was diagnosed with amyloid angiopathy seen by neurology and neurosurgery and no underlying vascular abnormality was found. She also has a history of seizures staring episodes and speech arrest which are transient but has not had a seizure in over a year and has been on Lamictal. She was hypertensive on presentation with systolic blood pressure of 205 and placed on Cardene drip. She denies any headache this morning or any nausea although still is confused with some difficulty with expression of her speech. 01/10/18: Pt awakens to voice. Denies headache, nausea, muscle weakness, difficulty with speech. Nurse reports patient had an episode of vomiting last night. She reportedly also has some difficulty with speech intermittently. 01/13/18: Pt awake and alert. Denies headache, nausea, chest pain, sob. She has O2 mask in place. Pt on Cardene drip. (Kuldip Nash) Review of Systems General: Negative for: fever, chills, insomnia Respiratory: Negative for: shortness of breath, cough, sputum Cardiovascular: Negative for: chest pain Gastrointestinal: Negative for: nausea, vomitting, diarrhea, constipation ( Kuldip Nash) Exam Results Vital Signs Date Time Temp Pulse Resp B/P (MAP) Pulse Ox O2 Delivery O2 Flow Rate FiO2 4/30/18 10:04 77 136/62 01/13/18 08:06 96 Simple Mask 8.00 01/13/18 08:00 98.1 26 01/09/18 10:51 21 Intake and Output 01/13/18 01/13/18 01/14/18 08:00 16:00 00:00 Intake Total 250 ml Output Total 200 ml Balance 50 ml (Kuldip Nash) Physical Examination General: Pt awake and alert sitting up in bed on O2 mask. Eyes: Pupils equal 2mm bilaterally. Sclera anicteric. Resp: CTA bilaterally. On O2 mask. Heart: NSR no murmurs. Cardene drip. Abd: Soft positive bs Skin: No cyanosis or erythema. SCDs in place. Muscle: Sitting up in bed. [employer] hands and moves toes. Neuro: Pt awake and alert. Follows commands. Pupils equal 2mm bilaterally. Reactive bilaterally. Nods head no complaints. (Kuldip Nash) Lab, Micro, Other Results Last Impressions Chest X-Ray 01/13/18 0600 Signed Impressions: Service Date/Time: Saturday, January 13, 2018 04:21 - CONCLUSION: Minimal bibasilar atelectatic changes. Otherwise negative. Kevin Forrester MD Head CT 01/11/18 0000 Signed Impressions: Service Date/Time: Thursday, January 11, 2018 15:54 - CONCLUSION: 1. Left frontal hemorrhage not simply change. No midline shift. 2. Encephalomalacia in the right frontal lobe, unchanged. 3. Minimal new extra-axial hemorrhage in the right frontal region adjacent to the encephalomalacia. Kuldip Oh MD Head Magnetic Resonance Angiography 01/09/18 0000 Signed Impressions: Service Date/Time: December 17:27 - CONCLUSION: Normal examination. Area of encephalomalacia involving the right frontal lobe, MRI of the brain is planned Khurram Galloway MD Brain MRI 01/09/18 0000 Signed Impressions: Service Date/Time: December 17:27 - CONCLUSION: Area of hemorrhage in the medial left frontal lobe with surrounding diffusion areas of increased signal possible hemorrhagic stroke. Large areas of encephalomalacia right frontal lobe with some surrounding gliosis. Very similar to the noncontrast head CT in 01/09/18. Khurram Galloway MD (Kuldip Nash) Medical Decision Making Impression and Plan A: 68-year-old lady with left frontal lobe hemorrhage likely related to hypertension/amyloid angiopathy. She has a previous history of right frontal lobe hemorrhage 2 with associated encephalomalacia. Overall neurologically she has been stable. P: Continue with hypertension regulation and medical management. Pt on Cardene drip. Mechanical DVT prophylaxis will continue with Lamictal for seizure prophylaxis. Close neurologic monitoring in the intensive care unit. [id number] diabetes mellitus. Sliding scale coverage. COPD related to smoking which is stable at this point. Continue with PT/OT/Speech therapy. (Kuldip Nash) Attending Statement The exam, history, and the medical decision-making described in the above note were completed with the assistance of the mid-level provider. I reviewed and agree with the findings presented. I attest that I had a [id number] encounter with the patient on the same day, and personally performed and documented my assessment and findings in the medical record. Awake and alert and follows simple commands. On Cardene drip being weaned with increasing p.o. hypertension as per the medical service. Nursing staff relates that swallowing is poor and scheduled for speech therapy swallowing reevaluation. Continue with medical management and hypertension regulation. (Mello Garcia MD) Kuldip Nash Jan 13, 2018 10:58 Mello Garcia MD Jan 13, 2018 11:36
--- NOTE | 2018-01-13 10:58 | HHI.PR ---
Subjective Remarks Patient is stable this morning. Awake and alert. Discussed with RN. Still requiring Cardene drip. Awaiting swallow evaluation. Objective Vitals Vital Signs Date Time Temp Pulse Resp B/P (MAP) Pulse Ox O2 Delivery O2 Flow Rate FiO2 01/13/18 10:04 77 136/62 01/13/18 08:06 96 Simple Mask 8.00 01/13/18 08:00 86 01/13/18 08:00 94 Simple Mask 6.00 01/13/18 08:00 98.1 86 26 144/63 (90) 94 01/13/18 06:50 87 150/67 01/13/18 06:00 83 01/13/18 04:00 98.0 84 31 144/63 (90) 94 01/13/18 04:00 84 01/13/18 02:54 81 142/63 01/13/18 02:00 82 01/13/18 00:00 75 01/13/18 00:00 98.2 75 24 129/59 (82) 95 01/13/18 00:00 75 124/59 01/12/18 22:30 78 167/70 01/12/18 22:22 83 149/59 01/12/18 22:00 80 01/12/18 22:00 80 143/65 01/12/18 21:30 89 Nasal Cannula 4.00 01/12/18 21:15 82 151/69 01/12/18 20:00 98.8 78 21 135/64 (87) 95 01/12/18 20:00 78 01/12/18 19:00 95 Nasal Cannula 2.00 01/12/18 18:00 73 148/69 01/12/18 18:00 72 01/12/18 17:59 73 142/67 01/12/18 17:04 96 Nasal Cannula 3.00 01/12/18 16:00 98.6 68 23 130/60 (83) 96 01/12/18 16:00 75 01/12/18 14:00 73 01/12/18 12:00 97.9 71 24 143/62 (89) 94 01/12/18 12:00 71 01/12/18 11:17 73 144/63 I/O 01/12/18 01/12/18 01/12/18 01/13/18 01/13/18 01/13/18 07:00 15:00 23:00 07:00 15:00 23:00 Intake Total 1500 ml 250 ml Output Total 400 ml 400 ml 200 ml Balance -400 ml 1100 ml 50 ml IV Total 1500 ml 250 ml Output Urine Total 400 ml 400 ml 200 ml # Voids 2 1 1 # Bowel Movements 0 0 Result Diagram: 01/11/1840601/11/18406 Objective Remarks GENERAL: This is a well-nourished, well-developed patient, in no apparent distress. CARDIOVASCULAR: Normal rate and regular rhythm without murmurs, gallops, or rubs. RESPIRATORY: Good respiratory efforts. Some upper airway transmission sound. Weak cough. Breath sounds equal and clear to auscultation bilaterally. GASTROINTESTINAL: Abdomen soft, non-tender, non-distended. Normal active bowel sounds MUSCULOSKELETAL: Extremities without cyanosis, or edema. NEURO: Alert & Oriented to self, place, and time. Moves all ext x4. Mild expressive aphasia PSYCH: Appropriate mood and affect. A/P Assessment and Plan Left frontal intraparenchymal hemorrhage with a small subarachnoid hemorrhage. Repeat CT on 01/11 shows small new extra axial hemorrhage. Likely old right frontal lobe encephalomalacia Elevated intraocular pressure Seizure disorder NOS Expressive and receptive aphasia CT brain revealed a left frontal and parietal hemorrhage 3 1 x 2.1 centimeters with a small subarachnoid hemorrhage. Old right frontal encephalomalacia Evaluated by neurosurgery and likely amyloid versus hypertensive bleed 01/09 MRI MRA brain revealed stable left frontal hemorrhagic CVA and old right frontal CVA/encephalomalacia. MRA brain negative. CT on 01/11 shows small new extra axial hemorrhage. Neurosurgery following. Continue lamotrigine 200 mg twice daily/home medication/home medication for seizures and seizure prophylaxis Continue pilocarpine 1% 1 drop each eye every 6 hours Continue brinzolamide 1% 1 drop each eye 3 times daily Goal keep systolic pressure less than 140 Acetaminophen 650 mg p.o. every 6 hours as needed pain 1 through 5/fever Morphine sulfate 2 mg IV every 2 hours as needed pain management 6 or 10 Alprazolam 0.25 mg every 8 hours as needed anxiety Hypertension On nicardipine drip. Oral medication on hold due to dysphagia. Speech therapy to reevaluate today. Once able to take oral, can restart Carvedilol 12 mg twice daily. Lisinopril to 10 mg BID. Keep SBP <140 COPD Nasal cannula to maintain saturations greater than or equal to 92% Incentive spirometry while awake As needed albuterol aerosols every 2 hours for dyspnea Gastroesophageal reflux disease/Dysphagia PABLITO RN, some concerns. Will ask speech to evaluate. Continue PPI Diabetes mellitus type 2 Sliding scale in with NovoLog with Accu-Cheks before meals at bedtime to maintain euglycemia/medium protocol Patient is on glipizide 5 mg p.o. daily at home Prophylaxis -GI -PPI -DVT -SCD/holding pharmacological prophylaxis secondary to ICH. Discharge Planning Keep in ICU for another 24 hours. Patient still critical with ICH. Follow neuro status closely. Jessica Calixto MD Jan 13, 2018 10:58
[2018-01-13 11:45] LABS: HEMATOCRIT 36.4 % (35.0-46.0); MEAN CELL VOLUME 88.9 FL (80.0-100.0); MEAN CORPUSCULAR HEMOGLOBIN 29.2 PG (27.0-34.0); MEAN CORPUSCULAR HGB CONC 32.9 % (32.0-36.0); MEAN PLATELET VOLUME 8.6 FL (7.0-11.0); PLATELET COUNT 399 TH/MM3 (150-450); RED BLOOD COUNT 4.09 MIL/MM3 (4.00-5.30); RED CELL DISTRIBUTION WIDTH 14.2 % (11.6-17.2); WHITE BLOOD COUNT 16.4 TH/MM3 (4.0-11.0)
[2018-01-13 12:17] LABS: BICARBONATE 25.2 MEQ/L (21.0-32.0); CALCIUM 8.8 MG/DL (8.5-10.1); CREATININE 0.93 MG/DL (0.50-1.00)
[2018-01-13] MEDS ORDERED: RESP: ALBUTEROL 2.5 MG/IPRATROPIUM 0.5 MG NEB (PRN) NEB (14:15)
[2018-01-13] MEDS: DOCUSATE SODIUM 50 MG/SENNA 8.6 MG TAB PO SCH ×2 (14:38→20:05)
[2018-01-13] MEDS: CARVEDILOL 6.25 MG TAB PO SCH ×2 (14:38→20:05)
[2018-01-13] MEDS: MAGNESIUM OXIDE 400 MG TAB PO SCH (14:38)
[2018-01-13] MEDS: PANTOPRAZOLE SOD 20 MG DELAYED RELEASE TAB PO SCH (14:38)
[2018-01-13] MEDS: LISINOPRIL 10 MG TAB PO SCH ×2 (14:39→20:05)
[2018-01-13] MEDS: lamoTRIgine 100 MG TAB PO SCH ×2 (14:39→20:05)
[2018-01-13] MEDS: RESP: ALBUTEROL 2.5 MG/IPRATROPIUM 0.5 MG NEB (SCH) NEB ×3 (15:48→23:21)
[2018-01-13] MEDS: LATANOPROST 0.005% OPHT SOLN 2.5 ML BTL LEFT EYE SCH (20:08)
[2018-01-14] VITALS (16 sets, daily range): BP systolic 127–160; BP diastolic 58–70; PULSE 76–96; RESP 21–27; TEMP 97.7–99.6; O2SAT 94–98
[2018-01-14] MEDS: RESP: ALBUTEROL 2.5 MG/IPRATROPIUM 0.5 MG NEB (SCH) NEB ×6 (03:15→23:06)
[2018-01-14] MEDS: hydrALAZINE HCL 20 MG/ML VIAL IV PUSH PRN ×4 (03:28→18:11)
[2018-01-14] MEDS: SODIUM CHLORIDE 0.9% FLUSH 10 ML FLUSH IV FLUSH PRN (07:31)
[2018-01-14] MEDS: INSULIN ASPART SUPPLEMENTAL SCALE SQ SCH ×4 (08:00→21:46)
[2018-01-14] MEDS: DOCUSATE SODIUM 50 MG/SENNA 8.6 MG TAB PO SCH ×2 (08:18→20:39)
[2018-01-14] MEDS: CARVEDILOL 6.25 MG TAB PO SCH ×2 (08:18→20:38)
[2018-01-14] MEDS: MAGNESIUM OXIDE 400 MG TAB PO SCH (08:18)
[2018-01-14] MEDS: lamoTRIgine 100 MG TAB PO SCH ×2 (08:18→21:45)
[2018-01-14] MEDS: PILOCARPINE HCL 2% OPHT SOLN 15 ML BTL EACH EYE SCH ×4 (08:19→20:39)
[2018-01-14] MEDS: LISINOPRIL 10 MG TAB PO SCH ×2 (08:19→20:39)
[2018-01-14] MEDS: SODIUM CHLORIDE 0.9% FLUSH 10 ML FLUSH IV FLUSH SCH ×2 (08:19→20:38)
[2018-01-14] MEDS: TIOTROPIUM BROMIDE 18 MCG INH INH SCH (08:19)
[2018-01-14] MEDS: PANTOPRAZOLE SOD 20 MG DELAYED RELEASE TAB PO SCH (08:19)
--- NOTE | 2018-01-14 09:40 | HHI.NSPN ---
(Kuldip Nash) History Chief Complaint: ICH (Kuldip Nash) Interval History 68-year-old female with an acute onset of confusion and difficulty with his speech started last evening on the flight from [place] to [place]. Patient 's daughter was accompanying her and is a nurse and they are here on vacation visiting her cousin. Subsequently on the drive to her relatives she also had positive vomiting and complained of a headache. She is brought to [facility] emergency room and CT scan of the head reveals a left frontal lobe approximately 3 cm intraparenchymal hemorrhage with small amount of extension into the interhemispheric fissure. There is also right frontal encephalomalacia from a previous hemorrhage several years ago and the daughter relates she also had another small hemorrhage a year ago and was diagnosed with amyloid angiopathy seen by neurology and neurosurgery and no underlying vascular abnormality was found. She also has a history of seizures staring episodes and speech arrest which are transient but has not had a seizure in over a year and has been on Lamictal. She was hypertensive on presentation with systolic blood pressure of 205 and placed on Cardene drip. She denies any headache this morning or any nausea although still is confused with some difficulty with expression of her speech. 01/10/18: Pt awakens to voice. Denies headache, nausea, muscle weakness, difficulty with speech. Nurse reports patient had an episode of vomiting last night. She reportedly also has some difficulty with speech intermittently. 01/13/18: Pt awake and alert. Denies headache, nausea, chest pain, sob. She has O2 mask in place. Pt on Cardene drip. 01/14/18: Pt awakens to voice but more fatigued today. Pupils 2mm bilaterally reactive bilaterally. Not answering much of my questions. (Kuldip Nash) System Review Comments Not able to obtain given clinical condition. (Kuldip Nash) Exam Results Vital Signs Date Time Temp Pulse Resp B/P (MAP) Pulse Ox O2 Delivery O2 Flow Rate FiO2 01/14/18 07:37 96 Nasal Cannula 3.00 01/14/18 06:00 96 01/14/18 04:00 98.5 22 138/63 (88) Intake and Output 01/14/18 01/14/18 01/15/18 08:00 16:00 00:00 Intake Total 240 ml Output Total 675 ml Balance -435 ml (Kuldip Nash) Physical Examination General: Pt awake and alert sitting up in bed. Eyes: Pupils equal 2mm bilaterally. Sclera anicteric. Resp: CTA bilaterally. Heart: NSR no murmurs. Cardene drip. Abd: Soft positive bs Skin: No cyanosis or erythema. SCDs in place. Muscle: Sitting up in bed. [employer] Services hands and moves toes. Neuro: Pt awakens to voice and stimulation but more fatigued today. Follows commands. Pupils equal 2mm bilaterally. Reactive bilaterally. (Kuldip Nash) Lab, Micro, Other Results Last Impressions Chest X-Ray 01/13/18 0600 Signed Impressions: Service Date/Time: Saturday, January 13, 2018 04:21 - CONCLUSION: Minimal bibasilar atelectatic changes. Otherwise negative. Kevin Forrester MD Head CT 01/11/18 0000 Signed Impressions: Service Date/Time: Thursday, January 11, 2018 15:54 - CONCLUSION: 1. Left frontal hemorrhage not simply change. No midline shift. 2. Encephalomalacia in the right frontal lobe, unchanged. 3. Minimal new extra-axial hemorrhage in the right frontal region adjacent to the encephalomalacia. Kuldip Oh MD Head Magnetic Resonance Angiography 01/09/18 0000 Signed Impressions: Service Date/Time: December 17:27 - CONCLUSION: Normal examination. Area of encephalomalacia involving the right frontal lobe, MRI of the brain is planned Khurram Galloway MD Brain MRI 01/09/18 0000 Signed Impressions: Service Date/Time: December 17:27 - CONCLUSION: Area of hemorrhage in the medial left frontal lobe with surrounding diffusion areas of increased signal possible hemorrhagic stroke. Large areas of encephalomalacia right frontal lobe with some surrounding gliosis. Very similar to the noncontrast head CT in 01/09/18. Khurram Galloway MD Laboratory Tests Test 01/13/18 11:38 White Blood Count 16.4 TH/MM3 Red Blood Count 4.09 MIL/MM3 Hemoglobin 12.0 GM/DL Hematocrit 36.4 % Mean Corpuscular Volume 88.9 FL Mean Corpuscular Hemoglobin 29.2 PG Mean Corpuscular Hemoglobin Concent 32.9 % Red Cell Distribution Width 14.2 % Platelet Count 399 TH/MM3 Mean Platelet Volume 8.6 FL Blood Urea Nitrogen 33 MG/DL Creatinine 0.93 MG/DL Random Glucose 110 MG/DL Calcium Level 8.8 MG/DL Sodium Level 141 MEQ/L Potassium Level 3.4 MEQ/L Chloride Level 106 MEQ/L Carbon Dioxide Level 25.2 MEQ/L Anion Gap 10 MEQ/L Estimat Glomerular Filtration Rate 60 ML/MIN (Kuldip Nash) Medical Decision Making Impression and Plan A: 68-year-old lady with left frontal lobe hemorrhage likely related to hypertension/amyloid angiopathy. She has a previous history of right frontal lobe hemorrhage 2 with associated encephalomalacia. Overall neurologically she has been stable. P: Continue with hypertension regulation and medical management. Pt on Cardene drip. Mechanical DVT prophylaxis will continue with Lamictal for seizure prophylaxis. Close neurologic monitoring in the intensive care unit. Arj-ninzlcr-wvfuoercg diabetes mellitus. Sliding scale coverage. COPD related to smoking which is stable at this point. Continue with PT/OT/Speech therapy. (Kuldip Nash) Attending Statement The exam, history, and the medical decision-making described in the above note were completed with the assistance of the mid-level provider. I reviewed and agree with the findings presented. I attest that I had a [id number] encounter with the patient on the same day, and personally performed and documented my assessment and findings in the medical record. Hypertension regulated and stable neurologic examination. Increase activity status as tolerated with rehab placement. Discussed with daughter at bedside. (Mello Garcia MD) Kuldip Nash January 14, 2018 09:40 Mello Garcia MD January 14, 2018 16:38
[2018-01-14] MEDS ORDERED: amLODIPine BESYLATE 5 MG TAB PO ONE (14:45)
--- NOTE | 2018-01-14 14:45 | HHI.PR ---
Subjective Remarks Patient says she is feeling all right. Denies any chest pain or shortness of breath. Cough continues, however chronic. There says it patient was a little more somnolent today, however alert upon daughter arrival. Objective Vital Signs Date Time Temp Pulse Resp B/P (MAP) Pulse Ox O2 Delivery O2 Flow Rate FiO2 01/14/18 14:00 90 01/14/18 12:00 86 01/14/18 12:00 99.6 86 24 128/58 (81) 97 01/14/18 10:00 76 01/14/18 08:00 97 Nasal Cannula 3.00 01/14/18 08:00 97.7 78 21 160/70 (100) 98 01/14/18 08:00 78 01/14/18 07:37 96 Nasal Cannula 3.00 01/14/18 06:00 96 01/14/18 04:00 88 01/14/18 04:00 98.5 88 22 138/63 (88) 98 01/14/18 03:17 94 Nasal Cannula 3.00 01/14/18 02:00 90 01/14/18 00:00 84 01/14/18 00:00 98.3 84 27 137/63 (87) 96 01/13/18 23:22 95 Nasal Cannula 3.00 01/13/18 22:00 85 01/13/18 20:16 97 Nasal Cannula 3.00 01/13/18 20:00 97.9 84 26 136/63 (87) 92 01/13/18 20:00 84 01/13/18 19:00 97 Nasal Cannula 3.00 01/13/18 18:00 74 01/13/18 16:00 98.6 76 28 103/51 (68) 99 01/13/18 16:00 76 I/O 01/13/18 01/13/18 01/13/18 01/14/18 01/14/18 01/14/18 06:59 14:59 22:59 06:59 14:59 22:59 Intake Total 250 ml 440 ml 240 ml Output Total 200 ml 400 ml 675 ml Balance 50 ml 40 ml -435 ml Intake Oral 440 ml 240 ml IV Total 250 ml Output Urine Total 200 ml 400 ml 675 ml # Voids 1 2 # Bowel Movements 0 0 1 Result Diagram: 01/13/18 1138 01/13/18 1138 Objective Remarks GENERAL: Patient with halting speech. Somnolent, but awake for exam. SKIN: Warm and dry. HEAD: Normocephalic. EYES: No scleral icterus. No injection or drainage. NECK: Supple, trachea midline. No JVD. CARDIOVASCULAR: Regular rate and rhythm without murmurs, gallops, or rubs. RESPIRATORY: Breath sounds equal bilaterally. No accessory muscle use. GASTROINTESTINAL: Abdomen soft, non-tender, nondistended. MUSCULOSKELETAL: No cyanosis, or edema. BACK: Nontender without obvious deformity. No CVA tenderness. A/P Assessment and Plan //Left frontal intraparenchymal hemorrhage with a small subarachnoid hemorrhage. Repeat CT on 01/11 shows small new extra axial hemorrhage. //Likely old right frontal lobe encephalomalacia //Elevated intraocular pressure //Seizure disorder NOS //Expressive and receptive aphasia CT brain revealed a left frontal and parietal hemorrhage 3 1 x 2.1 centimeters with a small subarachnoid hemorrhage. Old right frontal encephalomalacia Evaluated by neurosurgery and likely amyloid versus hypertensive bleed 01/09 MRI MRA brain revealed stable left frontal hemorrhagic CVA and old right frontal CVA/encephalomalacia. MRA brain negative. CT on 01/11 shows small new extra axial hemorrhage. Neurosurgery following. Continue lamotrigine 200 mg twice daily/home medication/home medication for seizures and seizure prophylaxis Continue pilocarpine 1% 1 drop each eye every 6 hours Continue brinzolamide 1% 1 drop each eye 3 times daily Goal keep systolic pressure less than 140 //Acetaminophen 650 mg p.o. every 6 hours as needed pain 1 through 5/fever Morphine sulfate 2 mg IV every 2 hours as needed pain management 6 or 10 Alprazolam 0.25 mg every 8 hours as needed anxiety //Somnolence on 01/14. This has improved somewhat since daughter arrived. We will order ABG. Will ask neurosurgery if we can stop Lamictal for prophylaxis. = We will order EEG. Follow-up neurosurgery recommendations. //Hypertension On nicardipine drip. Oral medication on hold due to dysphagia. Speech therapy to reevaluate today. Once able to take oral, can restart Carvedilol 12 mg twice daily. Lisinopril to 10 mg BID. Keep SBP <140 =01/14 blood pressure elevated this morning. Improved as needed hydralazine. Will add amlodipine. Change to monitor //COPD Nasal cannula to maintain saturations greater than or equal to 92% Incentive spirometry while awake As needed albuterol aerosols every 2 hours for dyspnea //Gastroesophageal reflux disease/Dysphagia PABLITO RN, some concerns. Will ask speech to evaluate. Continue PPI //Diabetes mellitus type 2 Sliding scale in with NovoLog with Accu-Cheks before meals at bedtime to maintain euglycemia/medium protocol Patient is on glipizide 5 mg p.o. daily at home = 01/14. Blood sugars acceptable. Continue to monitor. //Prophylaxis -GI -PPI -DVT -SCD/holding pharmacological prophylaxis secondary to ICH. Discharge Planning Blood pressure still elevated this morning. Continue to monitor. Likely transfer to floor tomorrow. Hopefully to rehab in 1-2 days. Rich Sales MD January 14, 2018 14:45
[2018-01-14] MEDS: LATANOPROST 0.005% OPHT SOLN 2.5 ML BTL LEFT EYE SCH (20:40)
[2018-01-15] VITALS (14 sets, daily range): BP systolic 119–185; BP diastolic 58–80; PULSE 76–90; RESP 20–24; TEMP 97.7–98.9; O2SAT 93–97
[2018-01-15] MEDS: RESP: ALBUTEROL 2.5 MG/IPRATROPIUM 0.5 MG NEB (SCH) NEB ×5 (03:50→21:08)
[2018-01-15] MEDS: CHLORHEXIDINE GLUCONATE 2 % 1 PACK (2 CLOTHS) TOP SCH (04:00)
[2018-01-15 07:28] LABS: AUTOMATED NEUTROPHIL # 11.6 TH/MM3 (1.8-7.7); BASOPHIL % 0.3 % (0.0-2.0); EOSINOPHIL # 0.2 TH/MM3 (0-0.4); HEMATOCRIT 36.1 % (35.0-46.0); HEMOGLOBIN 11.7 GM/DL (11.6-15.3); LYMPH % 13.9 % (9.0-44.0); LYMPHOCYTE # 2.1 TH/MM3 (1.0-4.8); MEAN CELL VOLUME 89.1 FL (80.0-100.0); MEAN CORPUSCULAR HGB CONC 32.5 % (32.0-36.0); MEAN PLATELET VOLUME 10.3 FL (7.0-11.0); NEUT % 77.8 % (16.0-70.0); PLATELET COUNT 273 TH/MM3 (150-450); RED BLOOD COUNT 4.05 MIL/MM3 (4.00-5.30); RED CELL DISTRIBUTION WIDTH 14.7 % (11.6-17.2); WHITE BLOOD COUNT 14.9 TH/MM3 (4.0-11.0)
[2018-01-15 07:46] LABS: CALCIUM 8.8 MG/DL (8.5-10.1); CREATININE 0.88 MG/DL (0.50-1.00); MAGNESIUM 2.1 MG/DL (1.5-2.5); PHOSPHORUS 2.4 MG/DL (2.5-4.9)
[2018-01-15] MEDS: INSULIN ASPART SUPPLEMENTAL SCALE SQ SCH ×4 (08:00→22:10)
[2018-01-15] MEDS: CARVEDILOL 6.25 MG TAB PO SCH ×2 (08:20→20:55)
[2018-01-15] MEDS: DOCUSATE SODIUM 50 MG/SENNA 8.6 MG TAB PO SCH ×2 (08:20→20:56)
[2018-01-15] MEDS: lamoTRIgine 100 MG TAB PO SCH ×2 (08:20→20:56)
[2018-01-15] MEDS: LISINOPRIL 10 MG TAB PO SCH ×2 (08:20→20:56)
[2018-01-15] MEDS: PANTOPRAZOLE SOD 20 MG DELAYED RELEASE TAB PO SCH (08:20)
[2018-01-15] MEDS: MAGNESIUM OXIDE 400 MG TAB PO SCH (08:21)
[2018-01-15] MEDS: hydrALAZINE HCL 20 MG/ML VIAL IV PUSH PRN (08:21)
[2018-01-15] MEDS: TIOTROPIUM BROMIDE 18 MCG INH INH SCH (08:22)
[2018-01-15] MEDS: PILOCARPINE HCL 2% OPHT SOLN 15 ML BTL EACH EYE SCH ×4 (08:22→20:57)
[2018-01-15] MEDS: SODIUM CHLORIDE 0.9% FLUSH 10 ML FLUSH IV FLUSH SCH ×2 (08:22→20:56)
[2018-01-15] MEDS ORDERED: amLODIPine BESYLATE 5 MG TAB PO SCH (09:00)
--- NOTE | 2018-01-15 09:20 | HHI.NSPN ---
(Kuldip Nash) History Chief Complaint: ICH (Kuldip Nash) Interval History 68-year-old female with an acute onset of confusion and difficulty with his speech started last evening on the flight from [place] to [place]. Patient 's daughter was accompanying her and is a nurse and they are here on vacation visiting her cousin. Subsequently on the drive to her relatives she also had positive vomiting and complained of a headache. She is brought to [facility] emergency room and CT scan of the head reveals a left frontal lobe approximately 3 cm intraparenchymal hemorrhage with small amount of extension into the interhemispheric fissure. There is also right frontal encephalomalacia from a previous hemorrhage several years ago and the daughter relates she also had another small hemorrhage a year ago and was diagnosed with amyloid angiopathy seen by neurology and neurosurgery and no underlying vascular abnormality was found. She also has a history of seizures staring episodes and speech arrest which are transient but has not had a seizure in over a year and has been on Lamictal. She was hypertensive on presentation with systolic blood pressure of 205 and placed on Cardene drip. She denies any headache this morning or any nausea although still is confused with some difficulty with expression of her speech. 01/10/18: Pt awakens to voice. Denies headache, nausea, muscle weakness, difficulty with speech. Nurse reports patient had an episode of vomiting last night. She reportedly also has some difficulty with speech intermittently. 01/13/18: Pt awake and alert. Denies headache, nausea, chest pain, sob. She has O2 mask in place. Pt on Cardene drip. 01/14/18: Pt awakens to voice but more fatigued today. Pupils 2mm bilaterally reactive bilaterally. Not answering much of my questions. 01/15/18: Pt more awake today. She is getting her days and nights confused. She denies headache, nausea, vomiting, muscle weakness. She has SOB and is on O2. No chest pain. (Kuldip Nash) Review of Systems General: Negative for: fever, chills, insomnia Respiratory: Positive for: shortness of breath, Negative for: cough, sputum Cardiovascular: Negative for: chest pain Gastrointestinal: Negative for: nausea, vomitting, diarrhea, constipation ( Kuldip Nash) Exam Results Vital Signs Date Time Temp Pulse Resp B/P (MAP) Pulse Ox O2 Delivery O2 Flow Rate FiO2 01/15/18 08:36 94 Nasal Cannula 3.00 01/15/18 06:00 88 01/15/18 04:00 98.3 22 165/72 (103) Intake and Output 01/15/18 01/15/18 01/16/18 08:00 16:00 00:00 Output Total 200 ml Balance -200 ml (Kuldip Nash) Physical Examination General: Pt awake and alert sitting up in bed. Eyes: Pupils equal 2mm bilaterally. Sclera anicteric. Resp: CTA bilaterally. Heart: NSR no murmurs. Off Cardene but getting prn Hydralazine IV bid. Abd: Soft positive bs Skin: No cyanosis or erythema. SCDs in place. Muscle: Sitting up in bed. [employer] hands and moves toes. Neuro: Pt awake and more alert today. Follows commands. Pupils equal 3mm bilaterally. Reactive bilaterally. (Kuldip Nash) Lab, Micro, Other Results Last Impressions Chest X-Ray 01/13/18 0600 Signed Impressions: Service Date/Time: Saturday, January 13, 2018 04:21 - CONCLUSION: Minimal bibasilar atelectatic changes. Otherwise negative. Kevin Forrester MD Head CT 01/11/18 0000 Signed Impressions: Service Date/Time: Thursday, January 11, 2018 15:54 - CONCLUSION: 1. Left frontal hemorrhage not simply change. No midline shift. 2. Encephalomalacia in the right frontal lobe, unchanged. 3. Minimal new extra-axial hemorrhage in the right frontal region adjacent to the encephalomalacia. Kuldip Oh MD Head Magnetic Resonance Angiography 01/09/18 0000 Signed Impressions: Service Date/Time: December 17:27 - CONCLUSION: Normal examination. Area of encephalomalacia involving the right frontal lobe, MRI of the brain is planned Khurram Galloway MD Brain MRI 01/09/18 0000 Signed Impressions: Service Date/Time: December 17:27 - CONCLUSION: Area of hemorrhage in the medial left frontal lobe with surrounding diffusion areas of increased signal possible hemorrhagic stroke. Large areas of encephalomalacia right frontal lobe with some surrounding gliosis. Very similar to the noncontrast head CT in 01/09/18. Khurram Galloway MD Laboratory Tests Test 01/14/18 14:53 01/15/18 05:59 Blood Gas Puncture Site LT RADIAL Blood Gas Patient Temperature 98.6 Blood Gas HCO3 28 mmol/L Blood Gas Base Excess 4.1 mmol/L Blood Gas Oxygen Saturation 94 % Arterial Blood pH 7.43 Arterial Blood Partial Pressure CO2 43 mmHg Arterial Blood Partial Pressure O2 83 mmHg Arterial Blood Oxygen Content 14.9 Vol % Arterial Blood Carboxyhemoglobin 0.9 % Arterial Blood Methemoglobin 1.5 % Blood Gas Hemoglobin 11.1 G/DL Oxygen Delivery Device NASAL CANNULA Blood Gas Liter Flow 3 L/M White Blood Count 14.9 TH/MM3 Red Blood Count 4.05 MIL/MM3 Hemoglobin 11.7 GM/DL Hematocrit 36.1 % Mean Corpuscular Volume 89.1 FL Mean Corpuscular Hemoglobin 29.0 PG Mean Corpuscular Hemoglobin Concent 32.5 % Red Cell Distribution Width 14.7 % Platelet Count 273 TH/MM3 Mean Platelet Volume 10.3 FL Neutrophils (%) (Auto) 77.8 % Lymphocytes (%) (Auto) 13.9 % Monocytes (%) (Auto) 7.0 % Eosinophils (%) (Auto) 1.0 % Basophils (%) (Auto) 0.3 % Neutrophils # (Auto) 11.6 TH/MM3 Lymphocytes # (Auto) 2.1 TH/MM3 Monocytes # (Auto) 1.0 TH/MM3 Eosinophils # (Auto) 0.2 TH/MM3 Basophils # (Auto) 0.0 TH/MM3 CBC Comment DIFF FINAL Differential Comment Hematology Comments Blood Urea Nitrogen 29 MG/DL Creatinine 0.88 MG/DL Random Glucose 89 MG/DL Albumin 3.0 GM/DL Calcium Level 8.8 MG/DL Phosphorus Level 2.4 MG/DL Magnesium Level 2.1 MG/DL Sodium Level 136 MEQ/L Potassium Level 3.8 MEQ/L Chloride Level 103 MEQ/L Carbon Dioxide Level 24.0 MEQ/L Anion Gap 9 MEQ/L Estimat Glomerular Filtration Rate 64 ML/MIN (Kuldip Nash) Medical Decision Making Impression and Plan A: 68-year-old lady with left frontal lobe hemorrhage likely related to hypertension/amyloid angiopathy. She has a previous history of right frontal lobe hemorrhage 2 with associated encephalomalacia. Overall neurologically she has been stable. P: Continue with hypertension regulation and medical management. Pt getting prn Hydralazine IV. Mechanical DVT prophylaxis will continue with Lamictal for seizure prophylaxis. Close neurologic monitoring in the intensive care unit. Wnf-[id number]-ymcoepihv diabetes mellitus. Sliding scale coverage. COPD related to smoking which is stable at this point. Continue with PT/OT/Speech therapy. (Kuldip Nash) Attending Statement The exam, history, and the medical decision-making described in the above note were completed with the assistance of the mid-level provider. I reviewed and agree with the findings presented. I attest that I had a [id number] encounter with the patient on the same day, and personally performed and documented my assessment and findings in the medical record. More alert and interactive today. Tolerating diet well. Daughter at bedside updated on her condition. Hypertension well-regulated. Transfer to floor anticipate discharge later this week if stable. (Mello Garcia MD) Kuldip Nash January 15, 2018 09:20 Mello Garcia MD January 15, 2018 13:20
[2018-01-15] MEDS: hydrALAZINE HCL 50 MG TAB PO SCH ×2 (15:39→22:10)
[2018-01-15] MEDS: ENALAPRILAT 1.25 MG/ML VIAL IV PUSH PRN (16:40)
[2018-01-15] MEDS: LATANOPROST 0.005% OPHT SOLN 2.5 ML BTL LEFT EYE SCH (21:00)
--- NOTE | 2018-01-15 23:30 | HHI.PR ---
Subjective Remarks Patient seen this morning. Says she is feeling well. Denies any chest pain or shortness breath. Denies headache. Objective Vital Signs Date Time Temp Pulse Resp B/P (MAP) Pulse Ox O2 Delivery O2 Flow Rate FiO2 01/15/18 16:04 158/72 (100) 01/15/18 16:03 98.0 88 20 148/67 (94) 95 01/15/18 12:00 98.5 80 24 119/60 (79) 95 01/15/18 12:00 76 01/15/18 10:00 77 01/15/18 08:36 94 Nasal Cannula 3.00 01/15/18 08:00 98.9 80 23 176/80 (112) 97 01/15/18 08:00 80 01/15/18 07:00 96 Nasal Cannula 2.00 01/15/18 06:00 88 01/15/18 04:00 90 01/15/18 04:00 98.3 90 22 165/72 (103) 96 01/15/18 03:57 97 Nasal Cannula 3.00 01/15/18 02:00 83 01/15/18 00:00 98.5 82 22 129/58 (81) 96 01/15/18 00:00 78 I/O 01/15/18 01/15/18 01/15/18 01/16/18 01/16/18 01/16/18 07:00 15:00 23:00 07:00 15:00 23:00 Output Total 200 ml Balance -200 ml Output Urine Total 200 ml # Voids 3 # Bowel Movements 0 Result Diagram: 01/15/18 0559 01/15/18 0559 Objective Remarks GENERAL: Patient with slightly more fluid speech today. more alert today. Sitting up in bed. Appears comfortable. SKIN: Warm and dry. HEAD: Normocephalic. EYES: No scleral icterus. No injection or drainage. NECK: Supple, trachea midline. No JVD. CARDIOVASCULAR: Regular rate and rhythm without murmurs, gallops, or rubs. RESPIRATORY: Breath sounds equal bilaterally. No accessory muscle use. GASTROINTESTINAL: Abdomen soft, non-tender, nondistended. MUSCULOSKELETAL: No cyanosis, or edema. BACK: Nontender without obvious deformity. No CVA tenderness. A/P Assessment and Plan //Left frontal intraparenchymal hemorrhage with a small subarachnoid hemorrhage. Repeat CT on 01/11 shows small new extra axial hemorrhage. //Likely old right frontal lobe encephalomalacia //Elevated intraocular pressure //Seizure disorder NOS //Expressive and receptive aphasia CT brain revealed a left frontal and parietal hemorrhage 3 1 x 2.1 centimeters with a small subarachnoid hemorrhage. Old right frontal encephalomalacia Evaluated by neurosurgery and likely amyloid versus hypertensive bleed 01/09 MRI MRA brain revealed stable left frontal hemorrhagic CVA and old right frontal CVA/encephalomalacia. MRA brain negative. CT on 01/11 shows small new extra axial hemorrhage. Neurosurgery following. Continue lamotrigine 200 mg twice daily/home medication/home medication for seizures and seizure prophylaxis Continue pilocarpine 1% 1 drop each eye every 6 hours Continue brinzolamide 1% 1 drop each eye 3 times daily Goal keep systolic pressure less than 140 = 5/2. Blood pressure in the 170s this morning, improved after when necessary medication. Will add scheduled hydralazine. Blood pressure still somewhat elevated this afternoon. Will increase amlodipine dose //Acetaminophen 650 mg p.o. every 6 hours as needed pain 1 through 5/fever Morphine sulfate 2 mg IV every 2 hours as needed pain management 6 or 10 Alprazolam 0.25 mg every 8 hours as needed anxiety //Somnolence on 01/14. This has improved somewhat since daughter arrived. We will order ABG. Will ask neurosurgery if we can stop Lamictal for prophylaxis. = We will order EEG. Follow-up neurosurgery recommendations. = /. Somewhat improved. EEG is pending. Lamictal level pending. //Hypertension On nicardipine drip. Oral medication on hold due to dysphagia. Speech therapy to reevaluate today. Once able to take oral, can restart Carvedilol 12 mg twice daily. Lisinopril to 10 mg BID. Keep SBP <140 =/ blood pressure elevated this morning. Improved as needed hydralazine. Will add amlodipine. Change to monitor = /2. Blood pressure in the 170s this morning, improved after when necessary medication. Will add scheduled hydralazine. Blood pressure still somewhat elevated this afternoon. Will increase amlodipine dose //COPD Nasal cannula to maintain saturations greater than or equal to 92% Incentive spirometry while awake As needed albuterol aerosols every 2 hours for dyspnea //Gastroesophageal reflux disease/Dysphagia PABLITO RN, some concerns. Will ask speech to evaluate. Continue PPI //Diabetes mellitus type 2 Sliding scale in with NovoLog with Accu-Cheks before meals at bedtime to maintain euglycemia/medium protocol Patient is on glipizide 5 mg p.o. daily at home = 01/14. Blood sugars acceptable. Continue to monitor. //Prophylaxis -GI -PPI -DVT -SCD/holding pharmacological prophylaxis secondary to ICH. Discharge Planning Blood pressure still elevated this morning. = Hopefully to rehab in 1-2 days. Rich Sales MD January 15, 2018 23:30
[2018-01-16] VITALS (9 sets, daily range): BP systolic 130–163; BP diastolic 59–98; PULSE 71–85; RESP 18–22; TEMP 97.8–98.7; O2SAT 81–97
[2018-01-16] MEDS: ENALAPRILAT 1.25 MG/ML VIAL IV PUSH PRN (00:08)
[2018-01-16] MEDS: RESP: ALBUTEROL 2.5 MG/IPRATROPIUM 0.5 MG NEB (SCH) NEB ×5 (01:22→16:31)
[2018-01-16] MEDS: CHLORHEXIDINE GLUCONATE 2 % 1 PACK (2 CLOTHS) TOP SCH (04:00)
[2018-01-16] MEDS: hydrALAZINE HCL 50 MG TAB PO SCH ×2 (06:00→13:17)
--- NOTE | 2018-01-16 07:14 | MG ---
cc: Deandre Wilson MD ELECTROENCEPHALOGRAM NUMBER: [id number]. DESCRIPTION: Hyperventilation not performed, change in mental status. MEDICATIONS: Lisinopril, Trandate, Lamictal, Vasotec. INDICATIONS: Left frontal hemorrhage. DESCRIPTION: A 7-8 Hz diffuse rhythm is seen. No hemisphere asymmetry is noted. Some 5 Hz slowing is occasionally seen over the midline head region. Photic stimulation is performed without significant posterior driving. No focal abnormalities noted. No epileptiform or seizure activity is seen. IMPRESSION: Some mild diffuse theta slowing, otherwise an unremarkable recording. Deandre Wilson MD DJM/DL , 07:03 AM , 07:12 AM
[2018-01-16] MEDS: INSULIN ASPART SUPPLEMENTAL SCALE SQ SCH ×3 (07:21→16:23)
[2018-01-16] MEDS: CARVEDILOL 6.25 MG TAB PO SCH (08:25)
[2018-01-16] MEDS: DOCUSATE SODIUM 50 MG/SENNA 8.6 MG TAB PO SCH (08:25)
[2018-01-16] MEDS: PANTOPRAZOLE SOD 20 MG DELAYED RELEASE TAB PO SCH (08:25)
[2018-01-16] MEDS: MAGNESIUM OXIDE 400 MG TAB PO SCH (08:25)
[2018-01-16] MEDS: LISINOPRIL 10 MG TAB PO SCH (08:26)
[2018-01-16] MEDS: SODIUM CHLORIDE 0.9% FLUSH 10 ML FLUSH IV FLUSH SCH (08:26)
[2018-01-16] MEDS: lamoTRIgine 100 MG TAB PO SCH (08:26)
[2018-01-16] MEDS: PILOCARPINE HCL 2% OPHT SOLN 15 ML BTL EACH EYE SCH ×2 (08:27→13:00)
[2018-01-16] MEDS: TIOTROPIUM BROMIDE 18 MCG INH INH SCH (08:27)
--- NOTE | 2018-01-16 14:55 | HHI.PR ---
Subjective Remarks No complaints today. No headaches. Blood pressures remain slightly elevated. Objective Vital Signs Date Time Temp Pulse Resp B/P (MAP) Pulse Ox O2 Delivery O2 Flow Rate FiO2 01/16/18 11:36 97.8 71 20 130/59 (82) 97 01/16/18 08:36 95 Nasal Cannula 3.00 01/16/18 08:25 81 Nasal Cannula 3.00 95 01/16/18 07:34 142/64 (90) 01/16/18 07:33 98.7 79 19 148/65 (92) 01/16/18 05:51 98.4 78 18 161/98 (119) 96 01/16/18 01:22 96 Nasal Cannula 3.00 01/16/18 00:00 98.4 85 22 163/77 (105) 94 01/15/18 22:30 80 142/66 (91) 01/15/18 21:08 95 Nasal Cannula 3.00 01/15/18 20:00 93 Nasal Cannula 2.00 01/15/18 20:00 97.7 82 20 185/72 (109) 93 01/15/18 16:04 158/72 (100) 01/15/18 16:03 98.0 88 20 148/67 (94) 95 I/O 01/15/18 01/15/18 01/15/18 01/16/18 01/16/18 01/16/18 07:00 15:00 23:00 07:00 15:00 23:00 Output Total 200 ml Balance -200 ml Output Urine Total 200 ml # Voids 3 # Bowel Movements 0 Result Diagram: 01/15/18 0559 01/15/18 0559 Objective Remarks GENERAL: NAD, A&Ox2 HEAD: Normocephalic. NECK: Supple, trachea midline. No lymphadenopathy. EYES: No scleral icterus. No injection or drainage. CARDIOVASCULAR: Regular rate and rhythm without murmurs, gallops, or rubs. RESPIRATORY: Breath sounds equal bilaterally. No accessory muscle use. GASTROINTESTINAL: Abdomen soft, non-tender, nondistended. MUSCULOSKELETAL: No cyanosis, or edema. SKIN: Warm and dry. NEURO: No focal neurological deficitis. 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 Expressive and receptive aphasia Seizure disorder Continue lamotrigine Continue physical therapy Continue occupational therapy Continue to monitor for seizures Keep blood pressures at 140 mmHg or less Continue amlodipine Continue hydralazine Follow blood pressures Continue as needed pain treatments Elevated intraocular pressure Continue pilocarpine 1% 1 drop each eye every 6 hours Continue brinzolamide 1% 1 drop each eye 3 times daily Anxiety Continue as needed anti-anxiety treatments COPD No exacerbation Continue albuterol Incentive spirometry Diabetes mellitus type 2 Follow blood sugars Insulin sliding scale Diabetic diet DVT prophylaxis SCDs Discharge Planning Some signs of improvement blood pressure. Continue to monitor. Plan to discharge to rehab on pressure stable. Sincere Short MD January 16, 2018 14:55
[2018-01-16] MEDS ORDERED: LISI10TA3 PO (15:15)
[2018-01-16] MEDS ORDERED: VENTAER INH (15:15)
[2018-01-16] MEDS ORDERED: AMLO10 PO (15:15)
[2018-01-16] MEDS ORDERED: HYDR-3800 PO (15:15)
[2018-01-16] MEDS ORDERED: ALPR.25 PO (15:15)
[2018-01-16] MEDS ORDERED: LATA.005%O LEFT EYE (15:15)
[2018-01-16] MEDS ORDERED: SPIRCAP INH (15:15)
[2018-01-16] MEDS ORDERED: CARV6.25 PO (15:15)
--- NOTE | 2018-01-16 15:17 | HHI.DS ---
Discharge Summary Admission Date Jan 09, 2018 at 02:25 Discharge Date: January 16, 2018 Admitting Diagnosis Intraparenchymal hemorrhage (1) Intraparenchymal hemorrhage of brain ICD Code: I61.9 - Nontraumatic intracerebral hemorrhage, unspecified Diagnosis: Principal Status: Acute Procedures None Brief History - From Admission 68-year-old female who presents for an evaluation of altered mental status. The patient flew down from [place] with her daughter earlier tonight into [facility]. The patient was noted to have an alteration in her mental status while on the plane by the daughter. The daughter states the patient was digging through her purse, would not talk to the daughter, and appear to be altered, which is not the patient's normal baseline. The patient does have a history of previous frontal lobe intracranial hemorrhage, spontaneous per the daughter's report, but still takes a baby aspirin daily. The patient did complain of a headache earlier today and also noted some nausea and vomiting by the daughter prior to arrival. She however denies any neck pain, chest pain, shortness of breath, abdominal pain, or focal deficits upon arrival. The patient does have a history of partial seizure in the past and was previously on Keppra and Dilantin, however, only takes Lamictal currently. The CT of the head obtained in the emergency department shows left frontal intraparenchymal hemorrhage measuring 3.12.1 cm with a minimal subarachnoid bleed. The case was discussed by ED attending with the neurosurgeon on-call who recommends admission to neuro ICU and conservative management with tight blood pressure control. CBC/BMP: 01/15/18 0559 01/15/18 0559 Significant Findings Laboratory Tests Test 01/14/18 14:53 01/15/18 05:59 01/15/18 09:27 Blood Gas HCO3 28 mmol/L (22-26) Blood Gas Base Excess 4.1 mmol/L (-2-2) Arterial Blood pH 7.43 (7.380-7.420) Arterial Blood Partial Pressure CO2 43 mmHg (38-42) Blood Gas Hemoglobin 11.1 G/DL (12.0-16.0) White Blood Count 14.9 TH/MM3 (4.0-11.0) Neutrophils (%) (Auto) 77.8 % (16.0-70.0) Neutrophils # (Auto) 11.6 TH/MM3 (1.8-7.7) Monocytes # (Auto) 1.0 TH/MM3 (0-0.9) Blood Urea Nitrogen 29 MG/DL (7-18) Albumin 3.0 GM/DL (3.4-5.0) Phosphorus Level 2.4 MG/DL (2.5-4.9) Estimat Glomerular Filtration Rate 64 ML/MIN (>89) PE at Discharge GENERAL: This is a well-nourished, well-developed patient, in no apparent distress. CARDIOVASCULAR: Normal rate and regular rhythm without murmurs, gallops, or rubs. RESPIRATORY: Good respiratory efforts. Some upper airway transmission sound. Weak cough. Breath sounds equal and clear to auscultation bilaterally. GASTROINTESTINAL: Abdomen soft, non-tender, non-distended. Normal active bowel sounds MUSCULOSKELETAL: Extremities without cyanosis, or edema. NEURO: Alert & Oriented to self, place, and time. Moves all ext x4. Mild expressive aphasia PSYCH: Appropriate mood and affect. Hospital Course Mrs. Morgan is a 68-year-old female. She was admitted secondary to intraparenchymal hemorrhage. Expressive and receptive aphasia present. Small subarachnoid hemorrhage is also discovered. 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 At this point she is stabilized and has been doing well. She will need more physical therapy. She has been accepted to inpatient physical therapy. Blood pressures have been elevated over the past couple days but are improving. Medically stable for discharge to inpatient rehab today with further monitoring of blood pressures. Pt Condition on Discharge: Stable Discharge Disposition: Rehab Inpatient Discharge Time: > 30 minutes Discharge Instructions DIET: Follow Instructions for: As Tolerated, No Restrictions Activities you can perform: Regular-No Restrictions Follow up Referrals: PCP Follow-up - 2 Weeks New Medications: Albuterol 18 GM Inh (Ventolin Hfa 18 GM Inh) 90 Mcg/Act Aer 2 PUFF INH Q4H PRN for SHORTNESS OF BREATH, #1 INHALER 0 Refills Alprazolam (Xanax) 0.25 Mg Tab 0.25 MG PO Q8H PRN for anxiety, #20 TAB Amlodipine (Norvasc) 10 Mg Tab 10 MG PO DAILY for Blood Pressure Management, #30 TAB Carvedilol (Coreg) 6.25 Mg Tab 12.5 MG PO Q12HR for Blood Pressure Management, #60 TAB Hydralazine HCl (Hydralazine HCl) 50 Mg Tablet 50 MG PO Q8HR for Blood Pressure Management, #90 TAB Latanoprost Opth Drops (Xalatan Opth Drops) 0.005% Drops 1 DROP LEFT EYE HS for Eyes, #30 ML Lisinopril (Lisinopril) 10 Mg Tab 10 MG PO Q12HR for Blood Pressure Management, #60 TAB Tiotropium Inh (Spiriva Handihaler) 18 Mcg Cap 18 MCG INH DAILY for Breathing Treatment, #1 CAP 1 capsule = 18 mcg Continued Medications: Brinzolamide Opth Drops (Azopt Opth Drops) 1% Susp 1 DROP EACH EYE TID, BOTTLE Glipizide (Glipizide) 5 Mg Tab 5 MG PO DAILY for Blood Sugar Management, #30 TAB 0 Refills Take 30 minutes before a meal Lamotrigine (Lamictal) 200 Mg Tab 200 MG PO BID for Control Seizures, #60 TAB 0 Refills Magnesium Oxide (Magnesium Oxide) 250 Mg Tab 250 MG PO DAILY, TAB 0 Refills Omeprazole (Omeprazole) 20 Mg Tab 20 MG PO DAILY, #30 TAB 0 Refills Pilocarpine Opth Drops (Isopto Carpine Opth Drops) 1 % Soln 1 DROP EACH EYE Q6HR for Glaucoma, #1 BOTTLE 0 Refills Sincere Short MD January 16, 2018 15:17
[2018-01-16] MEDS ORDERED: CLON0.1T PO (15:19)
--- NOTE | 2018-01-16 16:45 | HHI.NSPN ---
(Kuldip Nash) History Chief Complaint: ICH (Kuldip Nash) Interval History 68-year-old female with an acute onset of confusion and difficulty with his speech started last evening on the flight from [place] to [place]. Patient 's daughter was accompanying her and is a nurse and they are here on vacation visiting her cousin. Subsequently on the drive to her relatives she also had positive vomiting and complained of a headache. She is brought to [facility] emergency room and CT scan of the head reveals a left frontal lobe approximately 3 cm intraparenchymal hemorrhage with small amount of extension into the interhemispheric fissure. There is also right frontal encephalomalacia from a previous hemorrhage several years ago and the daughter relates she also had another small hemorrhage a year ago and was diagnosed with amyloid angiopathy seen by neurology and neurosurgery and no underlying vascular abnormality was found. She also has a history of seizures staring episodes and speech arrest which are transient but has not had a seizure in over a year and has been on Lamictal. She was hypertensive on presentation with systolic blood pressure of 205 and placed on Cardene drip. She denies any headache this morning or any nausea although still is confused with some difficulty with expression of her speech. 01/10/18: Pt awakens to voice. Denies headache, nausea, muscle weakness, difficulty with speech. Nurse reports patient had an episode of vomiting last night. She reportedly also has some difficulty with speech intermittently. 01/13/18: Pt awake and alert. Denies headache, nausea, chest pain, sob. She has O2 mask in place. Pt on Cardene drip. 01/14/18: Pt awakens to voice but more fatigued today. Pupils 2mm bilaterally reactive bilaterally. Not answering much of my questions. 01/15/18: Pt more awake today. She is getting her days and nights confused. She denies headache, nausea, vomiting, muscle weakness. She has SOB and is on O2. No chest pain. 01/16/18: Pt awake and alert. Sitting up in chair. Denies headaches. No n/v. No muscle weakness. No numbness. (Kuldip Nash) Review of Systems General: Negative for: fever, chills, insomnia Respiratory: Negative for: shortness of breath, cough, sputum Cardiovascular: Negative for: chest pain Gastrointestinal: Negative for: nausea, vomitting, diarrhea, constipation ( Kuldip Nash) Exam Results Vital Signs Date Time Temp Pulse Resp B/P (MAP) Pulse Ox O2 Delivery O2 Flow Rate FiO2 01/16/18 16:34 96 21 01/16/18 15:35 98.0 77 20 136/63 (87) 01/16/18 08:36 Nasal Cannula 3.00 (Kuldip Nash) Physical Examination General: Pt awake and alert sitting up in chair. Eyes: Pupils equal 2mm bilaterally. Sclera anicteric. Resp: CTA bilaterally. Heart: NSR no murmurs. Abd: Soft positive bs Skin: No cyanosis or erythema. SCDs in place. Muscle: Sitting up in chair. Angle Bender hands and moves toes. Strength in UEs symmetric. Neuro: Pt awake and alert today. Follows commands. Pupils equal 3mm bilaterally. Reactive bilaterally. (Kuldip Nash) Lab, Micro, Other Results Last Impressions Chest X-Ray 01/13/18 0600 Signed Impressions: Service Date/Time: Saturday, January 13, 2018 04:21 - CONCLUSION: Minimal bibasilar atelectatic changes. Otherwise negative. Kevin Forrester MD Head CT 01/11/18 0000 Signed Impressions: Service Date/Time: Thursday, January 11, 2018 15:54 - CONCLUSION: 1. Left frontal hemorrhage not simply change. No midline shift. 2. Encephalomalacia in the right frontal lobe, unchanged. 3. Minimal new extra-axial hemorrhage in the right frontal region adjacent to the encephalomalacia. Kuldip Oh MD Head Magnetic Resonance Angiography 01/09/18 0000 Signed Impressions: Service Date/Time: December 17:27 - CONCLUSION: Normal examination. Area of encephalomalacia involving the right frontal lobe, MRI of the brain is planned Khurram Galloway MD Brain MRI 01/09/18 0000 Signed Impressions: Service Date/Time: Thursday, January 09, 2018 17:27 - CONCLUSION: Area of hemorrhage in the medial left frontal lobe with surrounding diffusion areas of increased signal possible hemorrhagic stroke. Large areas of encephalomalacia right frontal lobe with some surrounding gliosis. Very similar to the noncontrast head CT in 01/09/18. Khurram Galloway MD (Kuldip Nash) Medical Decision Making Impression and Plan A: 68-year-old lady with left frontal lobe hemorrhage likely related to hypertension/amyloid angiopathy. She has a previous history of right frontal lobe hemorrhage 2 with associated encephalomalacia. Overall neurologically she has been stable. P: Continue with hypertension regulation and medical management. Mechanical DVT prophylaxis will continue with Lamictal for seizure prophylaxis. [id number] diabetes mellitus. Sliding scale coverage. COPD related to smoking which is stable at this point. Continue with PT/OT/Speech therapy. Rehab placement. (Kuldip Nash) Attending Statement The exam, history, and the medical decision-making described in the above note were completed with the assistance of the mid-level provider. I reviewed and agree with the findings presented. I attest that I had a [id number] encounter with the patient on the same day, and personally performed and documented my assessment and findings in the medical record. (Mello Garcia MD) Kuldip Nash January 16, 2018 16:45 Mello Garcia MD January 16, 2018 16:51
== END 2018-01-16 17:07 | DRG 65 ==
LOC: NEPE 00:21 → NEDA 02:25 → N03B 04:01 → N03A 01-11 08:02 → N05A 01-15 14:42
PROVIDERS: ADMIT Hospitalist; ATTEND Hospitalist
DX: I61.1 Nontraumatic intracerebral hemorrhage in hemisphere, cortical (principal); R47.01 Aphasia; E85.89 Other amyloidosis; E85.4 Organ-limited amyloidosis; G93.89 Other specified disorders of brain; R13.10 Dysphagia, unspecified; J44.9 Chronic obstructive pulmonary disease, unspecified; G40.909 Epilepsy, unspecified, not intractable, without status epilepticus; I60.9 Nontraumatic subarachnoid hemorrhage, unspecified; Z86.73 Personal history of transient ischemic attack (TIA), and cerebral infarction without residual deficits; E11.9 Type 2 diabetes mellitus without complications; Z79.84 Long term (current) use of oral hypoglycemic drugs; H40.9 Unspecified glaucoma; I10 Essential (primary) hypertension; Z79.82 Long term (current) use of aspirin; Z79.899 Other long term (current) drug therapy; Z82.49 Family history of ischemic heart disease and other diseases of the circulatory system; Z87.891 Personal history of nicotine dependence; H54.61 Unqualified visual loss, right eye, normal vision left eye; K21.9 Gastro-esophageal reflux disease without esophagitis; F41.9 Anxiety disorder, unspecified; I68.0 Cerebral amyloid angiopathy
CPT/HCPCS: 36600; 70450; 70544; 70551; 71045; 80048; 80053; 80069; 80175; 80307; 82140; 82550; 82805; 82948; 83605; 83735; 84100; 84443; 84484; 85025; 85027; 85610; 85730; 93005; 94150; 94640; 94664; 94667; 94668; 95819; 96365; J0360; J1815; J2270; J2405; J7030; J7050; J7613